=== PATIENT | female | born 1965 | race Caucasian/White ===

== ENCOUNTER → 2021-02-24 14:33 | Outpatient (BNVA) | payer MEDICARE, MEDICAID, SELFPAY | PROVIDERS: PCP Nurse Practitioner Family; Visit Provider Nurse Practitioner Family | DX: M79.18 Myalgia, other site (principal); M51.34 Other intervertebral disc degeneration, thoracic region | CPT/HCPCS: 20552; 99202 ==

== ENCOUNTER → 2021-08-09 12:54 | Outpatient (BNVA) | payer MEDICARE, MEDICAID, SELFPAY | PROVIDERS: PCP Nurse Practitioner Family; Visit Provider Nurse Practitioner Family | DX: M79.18 Myalgia, other site (principal); M51.34 Other intervertebral disc degeneration, thoracic region | CPT/HCPCS: 20552; 99212; J3300 ==

== ENCOUNTER → 2022-01-16 14:38 | Outpatient (BNVA) | payer MEDICARE, MEDICAID, SELFPAY | PROVIDERS: Visit Provider Nurse Practitioner Family | DX: M51.34 Other intervertebral disc degeneration, thoracic region (principal); M62.838 Other muscle spasm; M48.10 Ankylosing hyperostosis [Forestier], site unspecified; M47.819 Spondylosis without myelopathy or radiculopathy, site unspecified | CPT/HCPCS: 99212 ==

== ENCOUNTER 2025-05-05 13:50 | Outpatient (AMB) | payer OTHER, SELFPAY ==
--- NOTE | 2025-05-05 13:53 | MHC.OFFVIS ---
Intake Visit Reasons: 6m Allergies latex Allergy (Severe, Verified 01/16/22 14:48) bleeding seafood Allergy (Severe, Verified 01/16/22 14:48) Anaphylaxis amoxicillin Adverse Reaction (Severe, Verified 01/16/22 14:48) yeast infection HPI Comments Details: 59 y/o with h/o breast cancer diagnosed in Jun, treated with chemo and radiation. She was on exmetasone and reported that it was causing pain. She was treated for painful peripheral neuropthy. She is presenting with peripheral neuropathy and chronic back pain. Her neuropathy, primarily affecting her feet, results in severe and constant pain. The condition worsens significantly with her prescribed cancer medication, Exemestane, although discontinuation provides symptom relief. Despite this, she must remain on this medication for her stage IV breast cancer for another four years. The patient's chronic back pain persists alongside neuropathy, and various attempted treatments, including analgesic medications, have not provided effective relief. Review of Systems Narrative - Neurological: Reports peripheral neuropathy affecting her feet; chronic back pain. - Musculoskeletal: Reports chronic back pain. - Medication: Reports severe neuropathy linked to Exemestane. Physical Exam Neuro Other: Mental Status: Alert and oriented to person, place, and time. Normal attention. Normal spontaneous speech, fluency, and comprehension. Cranial Nerves: CN II: Visual boswell full to confrontation, visual acuity intact. CN III, IV, : Pupils equal, round, reactive to light and accommodation. Extraocular movements are normal. CN V: Facial sensation is normal. CN VII: Facial movements symmetrical. CN VIII: Hearing intact to bedside conversation is normal. CN IX, X: Palate elevates symmetrically. CN XI: Shoulder shrug and head turn symmetrical. CN XII: Tongue midline without atrophy or fasciculations. Extrapyramidal: Full facial expressions and blinking. No rigidity. Movements are appropriate with no tremor or abnormality. Speech: Normal; no dysarthria or tremor. 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 Code(s): M79.2 - Neuralgia and neuritis, unspecified Category: Medical Plan Impression recommendations: 59 years old woman with breast cancer status post chemotherapy and radiation now maintained on Exemestane, which according to her was causing the pain. She stopped it for awhile and pain was much better. Unfortunately, she was required to take this for few more years. She was asked to do an experiment and stopped taking pregabalin for a week and maybe also carbamazepine. If no change in pain is noted, I would discontinue these medicines. Coding Level of Care Code Est Pt Level 3 (17586) Diagnoses Peripheral polyneuropathy G62.9 Peripheral neuropathy type: polyneuropathy, unspecified Neuropathic pain M79.2
--- OUTSIDE RECORDS SUMMARY | 2025-05-05 17:03 | XMS_ITS | Continuity of Care Document ---
Author Name [facility], Medical Address [address] [place] [address] Organization Unknown Address [address] [place] [address] Medications No known medications Problems No known problems
--- OUTSIDE RECORDS SUMMARY | 2025-05-05 17:03 | XMS_ITS | Clinical Summary ---
Author Organization [facility] Address [address] [place] [address] Phone Care Team Providers Care Hay Baler Name Role Phone Edis Jorgensen MD Primary Care Provider Allergies Active Allergy Reactions Criticality Noted Date Comments Amoxicillin Other Medium 08/13/2017 Yeast infection Fish Oil Anaphylaxis High 10/07/2018 Latex Other Medium 08/13/2017 Hands bleeding Shellfish Containing Products Anaphylaxis High 09/09 Shellfish Derived 08/13/2017 Medications carBAMazepine (TEGretol) 200 mg tablet Take 1 tablet (200 mg total) by mouth at bedtime. 12/18/19 21 Active lisinopriL (PRINIVIL,ZESTRIL ) 20 mg tablet Take 1 tablet (20 mg total) by mouth 1 (one) time each day. Active polyethylene glycol (MIRALAX) 17 gram packet Take 17 g by mouth daily. Active acetaminophen (TYLENOL) 500 mg tablet Take 2 tablets (1,000 mg total) by mouth 3 (three) times a day. Active albuterol HFA (Ventolin HFA) 90 mcg/actuation inhaler INHALE 2 PUFFS INTO THE LUNGS EVERY 6 HOURS NEEDED FOR COUGH OR WHEEZING 09/19/19 24 Active pregabalin (LYRICA) 150 mg capsule Take 1 capsule (150 mg total) by mouth 3 (three) times a day. Active cetirizine (ZyrTEC) 10 mg tablet TAKE 1 TABLET BY MOUTH DAILY 90 tablet 1 07/09/19 25 Active lancets (OneTouch Delica Plus Lancet) 33 gauge by Other route 1 (one) time each day. USE TO TEST BLOOD GLUCOSE EVERY DAY 100 each 3 07/09/19 25 Active exemestane (AROMASIN) 25 mg tablet TAKE 1 TABLET(25 MG) BY MOUTH DAILY 90 tablet 3 07/27/19 25 Active metoprolol tartrate (LOPRESSOR) 50 mg tablet TAKE 1 TABLET BY MOUTH TWICE DAILY 180 tablet 1 11/13/19 25 Active fluticasone propionate (FLONASE) 50 mcg/actuation nasal spray SHAKE LIQUID AND USE 2 SPRAYS IN EACH NOSTRIL EVERY DAY 48 g 1 12/02/19 25 Active albuterol 2.5 mg /3 mL (0.083 %) nebulizer solutionIndicatio ns:Simple chronic bronchitis (CMS/HCC V24, CMS/HCC V28) Take 3 mL (2.5 mg total) by nebulization every 4 (four) hours if needed for wheezing. USE 1 VIAL VIA NEBULIZER EVERY 4 HOURS NEEDED FOR WHEEZING OR SHORTNESS OF BREATH OR COUGH 75 mL 3 12/08/19 25 Active EPIC Research & DiagnosticsTouch Ultra Test test strip Blood sugar checks 1-2 times a day 200 each 2 12/08/19 25 Active atorvastatin (LIPITOR) 20 mg tablet TAKE 1 TABLET BY MOUTH DAILY 90 tablet 1 01/14/20 25 Active senna 8.6 mg tablet TAKE 1 TABLET BY MOUTH EVERY DAY NEEDED FOR CONSTIPATION 90 tablet 1 01/22/20 25 Active DULoxetine (CYMBALTA) [address] capsule Take 1 capsule (60 mg total) by mouth 1 (one) time each day. 90 capsule 1 01/26/20 25 Active sertraline (ZOLOFT) 50 mg tablet Take 1 tablet (50 mg total) by mouth 1 (one) time each day. 90 tablet 1 02/17/20 25 Active [employer] CRM Ultra2 Meter monitoring kit by extracorporeal route 2 (two) times a day. Dx E11.9 1 each 03/04/20 25 Active famotidine (Pepcid) 20 mg tabletIndications :KUSUM (obstructive sleep apnea),Moderate persistent asthma without complication,Pulm onary emphysema, unspecified emphysema type,Morbid obesity (CMS/HCC V24, CMS/HCC V28) Take 1 tablet (20 mg total) by mouth at bedtime. 90 each 3 03/04/20 25 026 Active fenofibrate (LOFIBRA) 54 mg tablet Take 1 tablet (54 mg total) by mouth 1 (one) time each day. 90 tablet 1 03/04/20 25 Active glipiZIDE (Glucotrol XL) 2.5 mg 24 hr tablet Take 1 tablet (2.5 mg total) by mouth 1 (one) time each day. Do not crush, chew, or split. 90 each 1 03/04/20 25 Active omeprazole (PriLOSEC) [address] capsule Take 1 capsule (40 mg total) by mouth 1 (one) time each day. 90 capsule 1 03/04/20 25 Active LORazepam (ATIVAN) 0.5 mg tablet Take 1-2 tablets 1 hour before MRI scan 2 tablet 03/04/20 25 Active fluticasone propion-salmetero L (AIRDUO RESPICLICK) 232-14 mcg/actuation aerosol [facility] breath activated inhaler INHALE 1 PUFF INTO THE LUNGS TWICE DAILY 3 each 03/16/20 25 Active morphine (MS CONTIN) 30 mg 12 hr tabletIndications :Malignant neoplasm of overlapping sites of right breast in female, estrogen receptor positive (CMS/HCC V24, CMS/HCC V28),Anterior chest wall pain,Drug-induced polyneuropathy (CMS/HCC V24) Take 1 tablet (30 mg total) by mouth every 8 (eight) hours. Do not crush, chew, or split. Max Daily Amount: 90 mg 90 tablet 04/19/20 25 Active oxyCODONE (ROXICODONE) 10 mg immediate release tabletIndications :Anterior chest wall pain Take 1 tablet (10 mg total) by mouth every 6 (six) hours. Max Daily Amount: 40 mg 120 tablet 04/19/20 25 Active morphine (MS CONTIN) 30 mg 12 hr tabletIndications :Malignant neoplasm of overlapping sites of right breast in female, estrogen receptor positive (CMS/HCC V24, CMS/HCC V28),Anterior chest wall pain,Drug-induced polyneuropathy (CMS/HCC V24) Take 1 tablet (30 mg total) by mouth every 8 (eight) hours. Do not crush, chew, or split. Max Daily Amount: 90 mg 90 tablet 03/10/20 025 Disconti nued(Reo rder) oxyCODONE (ROXICODONE) 10 mg immediate release tabletIndications :Anterior chest wall pain Take 1 tablet (10 mg total) by mouth every 6 (six) hours. Max Daily Amount: 40 mg 120 tablet 03/31/20 025 Disconti nued(Reo rder) Active Problems Problem Noted Date Diagnosed Date Left adrenal mass ([facility] V24) 02/19/2025 Diarrhea of presumed infectious origin 5 Fibromyalgia 10/28/2024 Stage 3a chronic kidney disease ([facility] V24, [facility] V28) 10/27/2024 Malignant neoplasm of overla pping sites of right breast in female, estrogen receptor positive ([facility] V24, [facility] V28) 02/13/2024 Moderate persistent asthma without complication 04/23/2023 Chronic obstructive pulmonar y disease ([facility] V24, [facility] V28) 04/23/2023 Stress incontinence, female 01/14/2023 Abscess of chest wall 10/06/2021 COVID-19 07/13/2021 Overview (04/08/2024): 07/05/21 Type 2 diabetes mellitus wit hout complication, without long-term current use of insulin ([facility] V24, [facility] V28) 01/09/2021 Type 2 diabetes mellitus wit h diabetic polyneuropathy, without long-term current use of insulin ([facility] V24, [facility] V28) 10/11/2020 Pre-diabetes 02/18/2020 Overview (04/08/2024): HbA1c 6.1 % Anterior chest wall pain 01/01/2020 Asthma 11/09/2019 Seroma of breast 10/23/2019 Radiation induced neuropathy ([facility] V24) 08/20 Overview (02/13/2024): Follows with neurology Radiation dermatitis 07/24/2019 Radiation necrosis of skin and subcutaneous 05/24 Overview (04/08/2024): Being treated by Dr Marie (radiatologist) with silver cream, kenalog cream; last axillary radiation treatment may 2019 Venous insufficiency of both lower extremities 1 Leg cramps 02/09/2019 Drug-induced polyneuropathy ([facility] V24) 2018 Ganglion cyst 12/30/2018 Cellulitis of chest wall 12/09/2018 Arterial hypotension 11/25/2018 Chemotherapy-induced nausea 10/20/2018 Intractable vomiting with nausea 10/20/2018 Musculoskeletal pain 10/20/2018 Hypokalemia 10/07/2018 Port-A-Cath in place 10/07/2018 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 Four +ve lymph nodes for metastatic disease. Receiving adjuvent chemotherapy with Dr Daniel. KUSUM (obstructive sleep apnea) 01/27/2018 Overview (04/08/2024): [facility] Home Polysomnogram: Date 01/20/2018; AHI 7, Unclassified apneas 2; Obstructive apneas 2; Central apneas 1; Mixed apneas 0; hypopneas 50; average oxygen saturation 93% (lowest 87% without saturations <88% for 5% or more of study) [facility] Polysomnogram treatment study. Date 03/12/2018. SE 58 % SM 69 %; spent 24 % of the study in REM. On CPAP @ 9; RDI 0 (AHI 0), Central apneas 0; Obstructive apneas 0; Mixed apneas 0; hypopneas 0; RERAs 0; and, average oxygen saturation was 95%. For the entire study, PLMs ~0. - Obstructive Sleep Apnea - mild; mostly hypopneas; without sleep related hypoventilation by 2018 home polysomnogram. DISH (diffuse idiopathic skeletal hyperostosis) 12/09/2017 Mixed hyperlipidemia 09/19/2017 Anxiety and depression 09/10/2017 Primary hypertension 09/10/2017 Gastroesophageal reflux disease 09/10/2017 Morbid obesity ([facility] V24, [facility] V28) 2017 Hiatal hernia 08/13/2017 Insomnia 08/13/2017 Squamous cell skin cancer 08/13/2017 Encounters Date Type Department Care Team Description 04/19/2025 Results Follow-Up General Surgery [facility] [address] [facility] [address] [place] [id number] Edis Jorgensen MD 04/14/2025 11:46 AM EDT - 04/14/2025 11:59 PM EDT Hospital Encounter [facility] MRI [address] [place] [id number] Adenoma of left adrenal gland Discharge Disposition: Home or Self Care 03/10/2025 2:15 PM EDT Office Visit [facility] Hematology Oncology [address] [place] [phone] Fred Morgan MD Malignant neoplasm of overlapping sites of right breast in female, estrogen receptor positive ([facility] V24, [facility] V28) (Primary Dx); Anterior chest wall pain; Drug-induced polyneuropathy ([facility] V24); Other insomnia; Simple chronic bronchitis ([facility] V24, [facility] V28); Anxiety and depression 03/04/2025 1:30 PM EDT Office Visit Adult Medicine [address] [phone] Edis Jorgensen MD Hospital discharge follow-up (Primary Dx); Gastroenteritis; Acute cystitis without hematuria; Adenoma of left adrenal gland; Type 2 diabetes mellitus with diabetic polyneuropathy, without long-term current use of insulin ([facility] V24, [facility] V28); Primary hypertension; Anxiety and depression; KUSUM (obstructive sleep apnea); Moderate persistent asthma without complication; Pulmonary emphysema, unspecified emphysema type ([facility] V24, [facility] V28); Morbid obesity ([facility] V24, [facility] V28) 02/18/2025 4:45 PM EDT - 02/19/2025 5:21 PM EDT Hospital Encounter [facility] Urology Unit [address] [place] [phone] Damri, Efe MelvinMD Dunia gastelum Jasmine, DO Lawrenz, Cedric W, MD Jones, Christopher, MD Santoyo-Pacheco, Omar D, MD Generalized abdominal pain (Primary Dx); Nausea and vomiting, unspecified vomiting type; Cystitis; Sepsis without acute organ dysfunction, due to unspecified organism ([facility] V24, [facility] V28) Discharge Disposition: Home or Self Care 02/18/2025 Telephone [facility] [address] [place] [address] Edis Jorgensen MD 02/16/2025 Telephone [facility] Hematology Oncology [address] [place] [address] Renetta Abernathy MA from Last 3 Months Immunizations Immunization Administration Dates Next Due Influenza Quadravalent, MDCK , 0.5ml, with preservative (Flucelvax) 6mo and older 04/02/2023,02/27/2020,03/16/2018 Influenza, Unspecified 04/20/2021,02/27/2020 [email or web address] SARS-CoV-2 COVID -19, vector-nr, rS-Ad26, preservative free 10/02/2020 [employer] SARS-CoV-2 COVID-19, mRNA, LNP-S, preservative free 04/02/2023,10/05/2021,04/21/2021 Pneumococcal conjugate 20 va lent (Prevnar 20, PCV 20) 2mo and older 04/02/2023 Pneumococcal polysaccharide 23 valent (Pneumovax 23) 2yo and older 03/16/2020 Tdap Tetanus diptheria acell ular pertussis (Boostrix; Adacel) 7yo and older 10/05/2016 Zoster recombinant (Shingrix ) 19yo and older 06/06/2018,04/07/2018 Surgical History Surgery Date Site/Laterality Comments WISDOM TOOTH EXTRACTION CHOLECYSTECTOMY CARPAL TUNNEL RELEASE Bilateral ROTATOR CUFF REPAIR ligament reattached HYSTERECTOMY MASTECTOMY Bilateral with sential lymph node, chemo and radiation CYST REMOVAL ?bartholin CR FINGER 2ND DIGIT RT (INDEX) right index finger bone spur removed SKIN CANCER EXCISION chest ABSCESS DRAINAGE top of left foot Medical History Medical History Date Comments Breast cancer ([facility] V24, [facility] V28) DX:Breast cancer (HCC) Squamous cell carcinoma of skin DX:Squamous cell carcinoma of skin Insomnia DX:Insomnia Hiatal hernia DX:Hiatal hernia GERD (gastroesophageal reflux disease) DX:GERD (gastroesophageal reflux disease) Hypertension DX:Hypertension Family History Medical History Relation Name Comments Arthritis Brother Cancer Maternal Grandmother colon Arthritis Mother Cancer Mother breast Diabetes Paternal Grandfather Arthritis Paternal Grandmother Relation Name Status Comments Brother Maternal Grandmother Mother Paternal Grandfather Paternal Grandmother Social History Tobacco Use Types Packs/Day Years Used Date Smoking Tobacco: Former Cigarettes Smokeless Tobacco: Never Tobacco Cessation:Counseling Given: Not Answered Alcohol Use Standard Drinks/Week Comments No 0 (1 standard drink = 0.6 oz pur e alcohol) Housing Instability Answer Date Recorde d Are you worried that in the next 2 months you may not have stable housing? No 10/22/2024 Food Access & Nutrition Answer Date Rec orded Do you have access to a vari ety of food including fruits and vegetables? Yes 10/22/2024 Access to Healthcare Answer Date Record ed Within the last 3 months, valeria khan many times did you visit the emergency department for your medical care? 0 10/22/2024 Health Literacy Answer Date Recorded How often do you need to hav e someone help you when you read instructions, pamphlets, or other written material from your doctor or pharmacy? Never 10/22/2024 Caregiver: How often do you need to have someone help you when you read instructions, pamphlets, or other written material from your doctor or pharmacy? Not on file 10/22/2024 Financial Risk Answer Date Recorded How hard is it for you to pa y for the very basics like food, housing, medical care, and air conditioning / heating? Unable to respond 10/22/2024 Transportation Answer Date Recorded Has the lack of transportati on kept you from meetings, work, or from getting things needed for daily living? No Has the lack of transportati on kept you from medical appointments or from getting medications? No 10/22/2024 Social Isolation Answer Date Recorded How often do you feel lonely or isolated from those around you? Sometimes 10/22/2024 Food Risk Answer Date Recorded Within the past 12 months we worried whether our food would run out before we got money to buy more. Never true 10/22/2024 Within the past 12 months th e food we bought just didn't last and we didn't have money to get more. Never true 10/22/2024 Dependent Care Answer Date Recorded Do you need help finding or paying for care for your loved ones. For example, early childhood education worker or elderly care for an older adult? No 10/22/2024 Education Answer Date Recorded Do you think completing more education or training, like finishing a GED, going to college, or learning a trade, would be helpful for you? No 10/22/2024 Employment and Income Answer Date Recor ded During the last four weeks, have you been actively looking for work? No 10/22/2024 Living Situation Answer Date Recorded What is your living situation? Unrecognized valu e 10/22/2024 Interpersonal Safety Answer Date Record ed Physical Abuse Unrecognized value 02/19/2025 Verbal Abuse Unrecognized value 02/19/2025 Comments Unknown Sex and Gender Information Value Date Recorded Sex Assigned at Female 04/22/2023 9:31 AM EDT Legal Sex Female 11:33 AM EST Gender Identity Female 04/22/2023 9:31 AM EDT Sexual Orientation Straight 04/22/2023 9: 31 AM EDT Obstetrics History Last Filed Vital Signs Vital Sign Reading Time Taken Comments Blood Pressure 147/52 03/10/2025 2:23 PM EDT Pulse 73 03/10/2025 2:23 PM EDT Temperature 35.6 C (96 F) 03/10/2025 2:23 PM EDT Respiratory Rate 17 02/19/2025 2:46 PM EDT Oxygen Saturation 98% 03/10/2025 2:23 PM EDT Inhaled Oxygen Concentration - - Weight 136 kg (300 lb) 03/10/2025 2:23 PM EDT Height 160 cm (5' 3 ) 03/10/2025 2:23 PM EDT Body Mass Index 53.14 03/10/2025 2:23 PM EDT Plan of Treatment Upcoming Encounters Date Type Department Care Team (Late st Contact Info) Description 06/02/2025 2:45 PM EST Office Visit [facility] Hematology Oncology [address] [place] [address] Jamey-Fred Daniel MD [address] [place] [address] 07/05/2025 2:00 PM EST Office Visit Adult Medicine [facility] [address], [place] [phone] Skye Chau PA [address], [place] Health Maintenance Due Date Last Done Comments Diabetes: Annual Retina Eye Exam 1977 Hepatitis A Vaccines (1 of 2 - Risk 2-dose series) 1986 Hepatitis B Vaccines (1 of 3 - 19+ 3-dose series) 1986 RSV Immunization Adult Patients (1 - Risk 50-74 years 1-dose series) 2017 HIV Screening 05/31/2022 Medicare Annual Wellness Visit 05/31/2022 Cervical Cancer Screening: Pap Smear 02/02/2023 02/03/2020 Diabetes: Annual Foot Exam 10/19/2024 10/20/2023 COVID-19 Vaccine ( season) 2025 03/03/2025, 04/10/2024, 04/02/2023, Additional history exists Diabetes: Blood Sugar Control Test (HGBA1C) 08/31/2025 03/03/2025, 12/16/2023, 12/16/2023 Social Influencers of Health Screening 10/22/2025 10/22/2024 Diabetes: Annual Urine Albumin-Creatinine Ratio (uACR) 03/03/2026 03/03/2025, 10/08/2024, 08/27/2023 Diabetes: Annual GFR (Glomerular Filtration Rate) 03/03/2026 03/03/2025, 02/19/2025, 02/18/2025, Additional history exists Hypertension/CHF/CAD Annual BMP Blood Test 03/03/2026 03/03/2025, 02/19/2025, 02/18/2025, Additional history exists DTaP,Tdap,and Td Vaccines (2 - Td or Tdap) 10/05/2026 10/05/2016 Colorectal Cancer Screening: Colonoscopy 02/11/2028 02/10/2018 Cholesterol Screening (Lipid Panel) 03/03/2030 03/03/2025, 08/27/2023 Zoster Vaccines Completed 06/06/2018, 04/07/2018 Breast Cancer Screening Discontinued 07/03/2018, 06/27 Hepatitis C Screening Completed 11/16/2021 Pneumococcal Vaccine: 50+ Years Completed 04/02/2023, 03/16/2020 Depression Screening Completed 10/22/2024 Influenza Vaccine Completed 03/03/2025, , 04/02/2023, Additional history exists HIB Vaccines Aged Out No longer eligi ble based on patient's age to complete this topic HPV Vaccines Aged Out No longer eligi ble based on patient's age to complete this topic IPV Vaccines Aged Out No longer eligi ble based on patient's age to complete this topic MMR Vaccines Aged Out No longer eligi ble based on patient's age to complete this topic Meningococcal ACWY Vaccine Aged Out N o longer eligible based on patient's age to complete this topic Meningococcal B Vaccine Aged Out No l onger eligible based on patient's age to complete this topic RSV Immunization Patients Under 20 months Aged Out No longer eligible based on patient's age to complete this topic Varicella Vaccines Aged Out No longer eligible based on patient's age to complete this topic Procedures Procedure Name Priority Date/Time Associated Diagnosis Comments MR ABDOMEN WO AND W CONTRAST Routine 04/14/2025 1:32 PM EDT Adenoma of left adrenal gland CBC WITH AUTO DIFFERENTIAL Routine 03/03/2025 2:16 PM EDT 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 ([facility] V24, [facility] V28) MICROALBUMIN CREATININE URINE RATIO Routine 03/03/2025 2:16 PM EDT Type 2 diabetes mellitus with diabetic polyneuropathy, without long-term current use of insulin ([facility] V24, [facility] V28) Mixed hyperlipidemia Primary hypertension Simple chronic bronchitis ([facility] V24, [facility] V28) KUSUM (obstructive sleep apnea) Stage 3a chronic kidney disease ([facility] V24, [facility] V28) Fibromyalgia Anxiety and depression Malignant neoplasm of overlapping sites of right breast in female, estrogen receptor positive ([facility] V24, [facility] V28) Urinary incontinence, unspecified type Transaminitis LIPID PANEL WITH REFLEX TO DIRECT LDL Routine 03/03/2025 2:16 PM EDT Type 2 diabetes mellitus with diabetic polyneuropathy, without long-term current use of insulin (CMS/HCC V24, CMS/HCC V28) Mixed hyperlipidemia Primary hypertension Simple chronic bronchitis (CMS/HCC V24, CMS/HCC V28) KUSUM (obstructive sleep apnea) Stage 3a chronic kidney disease (CMS/HCC V24, CMS/HCC V28) Fibromyalgia Anxiety and depression Malignant neoplasm of overlapping sites of right breast in female, estrogen receptor positive (CMS/HCC V24, CMS/HCC V28) Urinary incontinence, unspecified type Transaminitis HEMOGLOBIN A1C Routine 03/03/2025 2:16 PM EDT Type 2 diabetes mellitus with diabetic polyneuropathy, without long-term current use of insulin (CMS/HCC V24, CMS/HCC V28) Mixed hyperlipidemia Primary hypertension Simple chronic bronchitis (CMS/HCC V24, CMS/HCC V28) KUSUM (obstructive sleep apnea) Stage 3a chronic kidney disease (CMS/HCC V24, CMS/HCC V28) Fibromyalgia Anxiety and depression Malignant neoplasm of overlapping sites of right breast in female, estrogen receptor positive (CMS/HCC V24, CMS/HCC V28) Urinary incontinence, unspecified type Transaminitis CBC AND DIFFERENTIAL Routine 03/03/2025 2:16 PM EDT 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 (CMS/HCC V24, CMS/HCC V28) COMPREHENSIVE METABOLIC PANEL Routine 03/03/2025 2:16 PM EDT 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 (CMS/HCC V24, CMS/HCC V28) CANCER ANTIGEN 27-29 Routine 03/03/2025 2:16 PM EDT 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 (CMS/HCC V24, CMS/HCC V28) POCT GLUCOSE BLOOD Routine 02/19/2025 4: 44 PM EDT POCT GLUCOSE BLOOD Routine 02/19/2025 11 :25 AM EDT POCT GLUCOSE BLOOD Routine 02/19/2025 8: 53 AM EDT CBC WITH AUTO DIFFERENTIAL Routine 02/19/2025 5:58 AM EDT LACTATE Routine 02/19/2025 5:58 AM EDT CBC AND DIFFERENTIAL Routine 02/19/2025 5:58 AM EDT BASIC METABOLIC PANEL Routine 02/19/2025 5:58 AM EDT POCT GLUCOSE BLOOD Routine 02/18/2025 11 :38 PM EDT LACTATE, WITH REFLEX Timed 02/18/2025 8:31 PM EDT URINALYSIS WITH REFLEX MICROSCOPIC STAT 02/18/2025 8:07 PM EDT URINALYSIS WITH REFLEX MICROSCOPIC STAT 02/18/2025 8:[address] ABDOMEN PELVIS W CONTRAST STAT 02/18/2025 6:18 PM EDT LACTATE, WITH REFLEX STAT 02/18/2025 5:39 PM EDT CULTURE BLOOD STAT 02/18/2025 5:39 PM EDT MAGNESIUM Add-On 02/18/2025 5:23 PM EDT CBC WITH AUTO DIFFERENTIAL STAT 02/18/2025 5:23 PM EDT COMPREHENSIVE METABOLIC PANEL STAT 02/18/2025 5:23 PM EDT CBC AND DIFFERENTIAL STAT 02/18/2025 5:23 PM EDT RESPIRATORY VIRUS PANEL MOLECULAR STUDY STAT 02/18/2025 5:23 PM EDT CULTURE BLOOD STAT 02/18/2025 5:23 PM EDT DIABETES FOOT EXAM Routine 10/20/2023 HEPATITIS C SCREENING Routine 11/16/2021 PAP SMEAR Routine 02/03/2020 DX MAMMO INCL CAD UNI Routine 07/03/2018 10:16 AM EST Other abnormal and inconclusive findings on diagnostic imaging of breast COLONOSCOPY Routine 02/10/2018 from Last 3 Months or Most Recently Relevant to Health Maintenance Results * MR Abdomen wo and w Contrast (04/14/2025 1:32 PM EDT) Anatomical Region Laterality Modality Body Magnetic Resonan ce 04/19/2025 10:2 2 AM EDT Impressions 04/19/2025 11:49 AM EDT 1. A previously noted left adrenal nodule is difficult to characterize because of its small size. There is suggestion of signal dropout on out of phase imaging and this is suspected to represent an adenoma, but today's study is not definitive. 2. Partially visible severe degenerative spinal stenosis at L3-4. -------- FINAL REPORT -------- Dictated By: Jayden Paz Dictated Date: 04/19/2025 10:22 ET Assigned Physician: Jayden Paz Reviewed and Electronically Signed By: Jayden Paz Signed Date: 04/19/2025 11:49 ET Workstation ID: [id number] Transcribed By: Self Edit Transcribed Date: 04/19/2025 11:40 ET Narrative 04/19/2025 11:49 AM EDT PROCEDURE: MRI of the abdomen with intravenous contrast. HISTORY: Adrenal mass, < 4cm, initial eval. TECHNIQUE: Multiplanar multisequence MRI of the abdomen with and without intravenous contrast. IV contrast dose: 20 mL intravenous Dotarem from a 20 mL vial with 0 mL discarded. COMPARISON: CT dated 02/18/2025 and 10/10/2018. FINDINGS: LOWER THORAX: Normal. LIVER: Small cyst in the right lobe near the dome. No evidence of steatosis on out of phase imaging. The portal and hepatic veins are patent. BILIARY: Gallbladder not seen, suspected to be surgically absent. Normal caliber biliary tree. No ductal dilatation or filling defect. PANCREAS: No focal lesion. No ductal dilatation. SPLEEN: Normal. ADRENAL GLANDS: Stable small left adrenal nodule. The nodule is difficult to characterize because of its small size. There is suggestion of signal dropout on out of phase images. KIDNEYS: Normal. Visible portions of the collecting systems are normal. RETROPERITONEUM: No mass or lymphadenopathy. VASCULATURE: No aneurysm. BOWEL/MESENTERY: Visible portions are normal. ABDOMINAL WALL: Visible portions are normal. BONES: Multilevel degenerative changes of the lumbar spine, with significant degenerative spinal stenosis partially visible at L3-4 and incompletely evaluated. No visible bony lesion. Procedure Note Jayden Paz MD - 04/19/2025 PROCEDURE: MRI of the abdomen with intravenous contrast. HISTORY: Adrenal mass, < 4cm, initial eval. TECHNIQUE: Multiplanar multisequence MRI of the abdomen with and withoutintravenous contrast. IV contrast dose: 20 mL intravenous Dotarem from a 20 mL vial with 0 mLdiscarded. COMPARISON: CT dated 02/18/2025 and 10/10/2018. FINDINGS: LOWER THORAX: Normal. LIVER: Small cyst in the right lobe near the dome. No evidence ofsteatosis on out of phase imaging. The portal and hepatic veins arepatent. BILIARY: Gallbladder not seen, suspected to be surgically absent. Normalcaliber biliary tree. No ductal dilatation or filling defect. PANCREAS: No focal lesion. No ductal dilatation. SPLEEN: Normal. ADRENAL GLANDS: Stable small left adrenal nodule. The nodule is difficultto characterize because of its small size. There is suggestion of signaldropout on out of phase images. KIDNEYS: Normal. Visible portions of the collecting systems are normal. RETROPERITONEUM: No mass or lymphadenopathy. VASCULATURE: No aneurysm. BOWEL/MESENTERY: Visible portions are normal. ABDOMINAL WALL: Visible portions are normal. BONES: Multilevel degenerative changes of the lumbar spine, withsignificant degenerative spinal stenosis partially visible at L3-4 andincompletely evaluated. No visible bony lesion. IMPRESSION: 1. A previously noted left adrenal nodule is difficult to characterizebecause of its small size. There is suggestion of signal dropout on outof phase imaging and this is suspected to represent an adenoma, chip's study is not definitive. 2. Partially visible severe degenerative spinal stenosis at L3-4. -------- FINAL REPORT -------- Dictated By: Jayden Paz Dictated Date: 04/19/2025 10:22 ET Assigned Physician: Jayden Paz Reviewed and Electronically Signed By: Jayden Paz Signed Date: 04/19/2025 11:49 ET Workstation ID: [id number] Transcribed By: Self Edit Transcribed Date: 04/19/2025 11:40 ET Edis Jorgensen MD IM MRI PROCEDURES Final Re sult * (ABNORMAL) Lipid panel with reflex to direct LDL (03/03/2025 2:16 PM EDT) Cholesterol 216(H) 0 - 200 mg/dL LAB CHEMISTRY METHOD [facility]20[facility] 5[facility] Triglycerides 365(H) 0 - 150 mg/dL LAB CHEMISTRY METHOD 03/03/2025 5:54 PM [facility] HDL 44 >=40 mg/dL LAB CHEMISTRY METHOD 03/03/2025 5:54 PM [facility] LDL Calculated 99 0 - 100 mg/dL LAB CHEMISTRY METHOD 03/03/2025 5:54 PM T [facility] Comment:Estimated LDL Calcul ated using equation: Total cholesterol - HDL cholesterol - (Triglycerides/5) VLDL Cholesterol Ty 73 mg/dL LAB CHEMISTRY METHOD 03/03/2025 5:54 PM [facility] Non HDL Chol. (LDL+VLDL) 172(H) <145 mg/dL LAB CHEMISTRY METHOD 03/03/2025 5:54 PM [facility] Chol/HDL Ratio 4.9(H) 0.0 - 4.4 LAB CHEMISTRY METHOD 03/03/2025 5:54 PM [facility] Blood Venous blood specimen / Unknown Venipuncture / Unknown 03/03/2025 2:16 PM EDT 03/03/2025 4:39 PM EDT us Edis Jorgensen MD LAB BLOOD ORDERABLES Final Result [facility] [address] [place] [address], * (ABNORMAL) CBC auto differential (03/03/2025 2:16 PM EDT) Only the most recent of3 resultswithin the time period is included. WBC 9.2 4.8 - 10.8 K/mcL LAB HEMETOLOGY METHOD 03/03/2025 4:58 PM EDT [facility] RBC 5.00(H) 3.80 - 4.80 M/mcL LAB HEMETOLOGY METHOD 03/03/2025 4:58 PM EDT [facility] Hemoglobin 14.1 11.5 - 16.0 g/dL LAB HEMETOLOGY METHOD 03/03/2025 4:58 PM EDT [facility] Hematocrit 43.5 35.0 - 47.0 % LAB HEMETOLOGY METHOD 03/03/2025 4:58 PM EDT [facility] MCV 87.2 79.0 - 98.0 FL LAB HEMETOLOGY METHOD 03/03/2025 4:58 PM EDT [facility] MCH 28.3 27.0 - 32.0 pcg LAB HEMETOLOGY METHOD 03/03/2025 4:58 PM EDT [facility] MCHC 32.4 32.0 - 37.0 g/dL LAB HEMETOLOGY METHOD 03/03/2025 4:58 PM EDT [facility] RDW 13.2 11.0 - 15.0 % LAB HEMETOLOGY METHOD 03/03/2025 4:58 PM EDT [facility] Platelets 299 130 - 400 K/mcL LAB HEMETOLOGY METHOD 03/03/2025 4:58 PM EDT [facility] MPV 9.4 7.0 - 11.0 FL LAB HEMETOLOGY METHOD 03/03/2025 4:58 PM EDT [facility] NRBC 0.0 <1.0 % LAB HEMETOLOGY METHOD 03/03/2025 4:58 PM EDT [facility] NRBC Absolute 0.00 <0.10 K/mcL LAB HEMETOLOGY METHOD 03/03/2025 4:58 PM EDT [facility] Neutrophils Relative 73.9 % LAB HEMETOLOGY METHOD 03/03/2025 4:58 PM [facility] Lymphocytes Relative 16.7 % LAB HEMETOLOGY METHOD 03/03/2025 4:58 PM EDT [facility] Monocytes Relative 7.2 % LAB HEMETOLOGY METHOD 03/03/2025 4:58 PM EDT [facility] Eosinophils Relative 0.9 % LAB HEMETOLOGY METHOD 03/03/2025 4:58 PM [facility] Basophils Relative 0.9 % LAB HEMETOLOGY METHOD 03/03/2025 4:58 PM [facility] Immature Granulocytes Relative 0.4 % LAB HEMETOLOGY METHOD 03/03/2025 4:58 PM EDT [facility] Neutrophils Absolute 6.78 1.50 - 7.00 K/mcL LAB HEMETOLOGY METHOD 03/03/2025 4:58 PM EDT [facility] Lymphocytes Absolute 1.53 1.00 - 5.00 K/mcL LAB HEMETOLOGY METHOD 03/03/2025 4:58 PM EDT [facility] Monocytes Absolute 0.66 0.20 - 1.00 K/mcL LAB HEMETOLOGY METHOD 03/03/2025 4:58 PM EDT [facility] Eosinophils Absolute 0.08 0.00 - 0.50 K/[facility] LAB HEMETOLOGY METHOD 03/03/2025 4:58 PM EDT [facility] Basophils Absolute 0.08 0.00 - 0.20 K/mcL LAB HEMETOLOGY METHOD 03/03/2025 4:58 PM EDT [facility] Immature Granulocytes Absolute 0.04(H) 0.00 - 0.03 K/mcL LAB HEMETOLOGY METHOD 03/03/2025 4:58 PM EDT [facility] Blood Venous blood specimen / Unknown Venipuncture / Unknown 03/03/2025 2:16 PM EDT 03/03/2025 4:40 PM EDT us Fred Morgan MD LAB BLOOD ORDERABLE S Final Result Performing Organization Address City/[facility]/ZIP Co de Phone Number [facility] [address] [place] [address], * Cancer antigen 27-29 (03/03/2025 2:16 PM EDT) CA 27.29 27.9 <38.6 U/mL 03/08/2025 11:44 AM EDT [facility] Comment: The Siemens Advia Centaur [id number] Chemiluminescent Immunoassay is used. Results obtained with different assay methods or kits cannot be used interchangeably. Results cannot be interpreted as absolute evidence of the presence or absence of malignant disease. Test performed at [facility], [facility] [address] , [place] [address] Marcie Summers MD, PhD - Bottom Bleacher Blood Venous blood specimen / Unknown Venipuncture / Unknown 03/03/2025 2:16 PM EDT 03/03/2025 4:39 PM EDT us Fred Morgan MD LAB BLOOD ORDERABLE S Final Result [facility] [address] [place] [address] * (ABNORMAL) Microalbumin creatinine urine ratio (03/03/2025 2:16 PM EDT) Creatinine, Urine 145.0 mg/dL LAB CHEMISTRY METHOD 03/03/2025 6:11 PM EDT [facility] Microalb, Ur 29.1(H) 0.0 - 29.0 mg/L LAB CHEMISTRY METHOD 03/03/2025 6:11 PM EDT [facility] Microalb/Crea t Ratio 20 <30 mg/g creat LAB CHEMISTRY METHOD 03/03/2025 6:11 PM EDT [facility] Urine Urine specimen obtained by clean catch procedure / Unknown Non-blood Collection / Unknown 03/03/2025 2:16 PM EDT 03/03/2025 4:39 PM EDT us Edis Jorgensen MD LAB URINE ORDERABLES Final Result Performing Organization Address [facility] Co de Phone Number [facility] [address] [place] [address], * Hemoglobin A1c (03/03/2025 2:16 PM EDT) Hemoglobin A1C 5.8 <6.5 % LAB CHEMISTRY METHOD 03/03/2025 9:41 PM EDT [facility] Mean Bld Glu Estim. 120 mg/dL LAB CHEMISTRY METHOD 03/03/2025 9:41 PM EDT [facility] Blood Venous blood specimen / Unknown Venipuncture / Unknown 03/03/2025 2:16 PM EDT 03/03/2025 4:40 PM EDT Edis Jorgensen MD LAB BLOOD ORDERABLES Final Result Performing Organization Address City/[facility]/ZIP Co de Phone Number [facility] [address] [place] [address], * (ABNORMAL) Comprehensive metabolic panel (03/03/2025 2:16 PM EDT) Only the most recent of2 resultswithin the time period is included. Sodium 134 133 - 145 mmol/L LAB CHEMISTRY METHOD 03/03/2025 5:54 PM EDT [facility] Potassium 4.5 3.5 - 5.5 mmol/L LAB CHEMISTRY METHOD 03/03/2025 5:54 PM [facility] Chloride 102 96 - 110 mmol/L LAB CHEMISTRY METHOD 03/03/2025 5:54 PM [facility] CO2 24 21 - 32 mmol/L LAB CHEMISTRY METHOD 03/03/2025 5:54 PM [facility] Anion Gap 8 3 - 11 LAB CHEMISTRY METHOD 03/03/2025 5:54 PM [facility] Glucose 118(H) 70 - 100 mg/dL LAB CHEMISTRY METHOD 03/03/2025 5:54 PM [facility] BUN 18 5 - 25 mg/dL LAB CHEMISTRY METHOD 03/03/2025 5:54 PM [facility] Creatinine 1.13(H) 0.50 - 1.10 mg/dL LAB CHEMISTRY METHOD 03/03/2025 5:54 PM [facility] eGFR 57(L) >=60 mL/min/1. 73m2 LAB CHEMISTRY METHOD 03/03/2025 5:54 PM [facility] Comment:Calculation based on the Chronic Kidney Disease Epidemiology Collaboration (CKD-EPI) equation refit without adjustment for race. BUN/Creatinine Ratio 15.9 LAB CHEMISTRY METHOD 03/03/2025 5:54 PM [facility] Calcium 9.6 8.5 - 10.5 mg/dL LAB CHEMISTRY METHOD 03/03/2025 5:54 PM [facility] AST (SGOT) 41 10 - 42 unit/L LAB CHEMISTRY METHOD 03/03/2025 5:54 PM EDT [facility] ALT (SGPT) 41 10 - 60 unit/L LAB CHEMISTRY METHOD 03/03/2025 5:54 PM EDT [facility] Alkaline Phosphatase 105 42 - 121 unit/L LAB CHEMISTRY METHOD 03/03/2025 5:54 PM EDT [facility] Total Protein 7.7 6.0 - 8.0 g/dL LAB CHEMISTRY METHOD 03/03/2025 5:54 PM EDT [facility] Albumin 4.0 3.2 - 5.0 g/dL LAB CHEMISTRY METHOD 03/03/2025 5:54 PM EDT [facility] Total Bilirubin 0.3 0.0 - 1.4 mg/dL LAB CHEMISTRY METHOD 03/03/2025 5:54 PM EDT [facility] Blood Venous blood specimen / Unknown Venipuncture / Unknown 03/03/2025 2:16 PM EDT 03/03/2025 4:39 PM EDT Fred Morgan MD LAB BLOOD ORDERABLE S Final Result [facility] [address] [place] [address], * POCT Glucose, blood (02/19/2025 4:44 PM EDT) Only the most recent of4 resultswithin the time period is included. Glucose POCT 100 70 - 100 mg/dL 02/19/2025 4:45 PM EDT [facility] Blood Capillary blood specimen / Unknown 02/19/2025 4:44 PM EDT 02/19/2025 4:46 PM EDT Benson Bentley MD LAB POINT OF C ARE TEST DOCKED DEVICE UNSOLICITED RESULTS Final Result Performing Organization Address [facility]/ZIP Co de Phone Number [facility] [address] [place] [address], [place] [phone] * Lactate (02/19/2025 5:58 AM EDT) Lactate 0.9 0.4 - 2.0 mmol/L LAB CHEMISTRY METHOD 02/19/2025 7:13 AM EDT [facility] Blood Venous blood specimen / Unknown Venipuncture / Unknown 02/19/2025 5:58 AM EDT 02/19/2025 6:32 AM EDT Raymundo Beach MD LAB BLOOD ORDERABLES Final Result Performing Organization Address [facility]/ZIP Co de Phone Number [facility] [address] [place] [address], [place] [phone] * Basic metabolic panel (02/19/2025 5:58 AM EDT) Pathologist [facility] Sodium 138 133 - 145 mmol/L LAB CHEMISTRY METHOD 02/19/2025 7:07 AM [facility] Potassium 3.7 3.5 - 5.5 mmol/L LAB CHEMISTRY METHOD 02/19/2025 7:07 AM [facility] Chloride 104 96 - 110 mmol/L LAB CHEMISTRY METHOD 02/19/2025 7:07 AM [facility] CO2 25 21 - 32 mmol/L LAB CHEMISTRY METHOD 02/19/2025 7:07 AM [facility] Anion Gap 9 3 - 11 LAB CHEMISTRY METHOD 02/19/2025 7:07 AM [facility] Glucose 96 70 - 100 mg/dL LAB CHEMISTRY METHOD 02/19/2025 7:07 AM [facility] BUN 16 5 - 25 mg/dL LAB CHEMISTRY METHOD 02/19/2025 7:07 AM EDT [facility] Creatinine 1.02 0.50 - 1.10 mg/dL LAB CHEMISTRY METHOD 02/19/2025 7:07 AM EDT [facility] eGFR 64 >=60 mL/min/1. 73m2 LAB CHEMISTRY METHOD 02/19/2025 7:07 AM EDT [facility] Comment:Calculation based on the Chronic Kidney Disease Epidemiology Collaboration (CKD-EPI) equation refit without adjustment for race. BUN/Creatinine Ratio 15.7 LAB CHEMISTRY METHOD 02/19/2025 7:07 AM EDT [facility] Calcium 8.7 8.5 - 10.5 mg/dL LAB CHEMISTRY METHOD 02/19/2025 7:07 AM EDT [facility] Blood Venous blood specimen / Unknown Venipuncture / Unknown 02/19/2025 5:58 AM EDT 02/19/2025 6:32 AM EDT Raymundo Beach MD LAB BLOOD ORDERABLES Final Result [facility] [address] [place] [address], [place] [phone] * (ABNORMAL) Lactate, with reflex (02/18/2025 8:31 PM EDT) Only the most recent of2 resultswithin the time period is included. LACTIC ACID 3.1(HH) 0.4 - 2.0 mmol/L LAB CHEMISTRY METHOD 02/18/2025 10:00 PM EDT [facility] Blood Venous blood specimen / Unknown Venipuncture / Unknown 02/18/2025 8:31 PM EDT 02/18/2025 8:36 PM EDT Efe Holley MD LAB BLOOD ORDERABLES Fin al Result Performing Organization Address City/[facility]/ZIP Co de Phone Number [facility] [address] [place] [address], [place] [phone] * (ABNORMAL) Urinalysis with reflex microscopic (02/18/2025 8:07 PM EDT) Specific [place] Urine >1.045(H) 1.003 - 1.030 LAB URINALYSIS - AUTOMATED METHOD 02/18/2025 8:30 PM [facility] pH, Urine 5.5 5.0 - 8.0 pH LAB URINALYSIS - AUTOMATED METHOD 02/18/2025 8:30 PM [facility] Leukocytes, Urine Small(A) Negative LAB URINALYSIS - AUTOMATED METHOD 02/18/2025 8:30 PM [facility] Nitrite, Urine Negative Negative LAB URINALYSIS - AUTOMATED METHOD 02/18/2025 8:30 PM [facility] Protein, Urine Negative <=Trace mg/dL LAB URINALYSIS - AUTOMATED METHOD 02/18/2025 8:30 PM [facility] Glucose, Urine Negative Negative mg/dL LAB URINALYSIS - AUTOMATED METHOD 02/18/2025 8:30 PM [facility] Ketones, Urine Trace(A) Negative mg/dL LAB URINALYSIS - AUTOMATED METHOD 02/18/2025 8:30 PM [facility] Urobilinogen , Urine 1.0 0.2 - 1.0 mg/dL LAB URINALYSIS - AUTOMATED METHOD 02/18/2025 8:30 PM [facility] Bilirubin, Urine Negative Negative LAB URINALYSIS - AUTOMATED METHOD 02/18/2025 8:30 PM [facility] Blood, Urine Negative Negative LAB URINALYSIS - AUTOMATED METHOD 02/18/2025 8:30 PM [facility] RBC, Urine 1.8 0 - 4 /HPF LAB URINALYSIS - AUTOMATED METHOD 02/18/2025 8:30 PM [facility] WBC, Urine 28.5(H) 0 - 4 /HPF LAB URINALYSIS - AUTOMATED METHOD 02/18/2025 8:30 PM EDT [facility] Squamous Epithelial, Urine 11 0 - 60 /LPF LAB URINALYSIS - AUTOMATED METHOD 02/18/2025 8:30 PM EDT [facility] Bacteria, Urine Few(A) Negative /HPF LAB URINALYSIS - AUTOMATED METHOD 02/18/2025 8:30 PM EDT [facility] Hyaline Casts, Urine 0.0 0 - 3 /LPF LAB URINALYSIS - AUTOMATED METHOD 02/18/2025 8:30 PM EDT [facility] Urine Urine specimen obtained by clean catch procedure / Unknown Non-blood Collection / Unknown 02/18/2025 8:07 PM EDT 02/18/2025 8:14 PM EDT us Efe Holley MD LAB URINE ORDERABLES Fin al Result [facility] [address] [place] [address], [place] [phone] * CT Abdomen Pelvis w Contrast (02/18/2025 6:18 PM EDT) Anatomical Region Laterality Modality Body Computed Tomogra phy 02/18/2025 6:46 PM EDT Impressions 02/18/2025 6:46 PM EDT 1. No acute findings. 2. Hepatomegaly and mild hepatic steatosis. 3. 1.7 cm nonspecific left adrenal lesion. Follow-up nonemergent adrenal CT or MRI could be obtained to further characterize. This document has been electronically signed by: Ira Watson MD on 02/18/2025 18:46:50 Narrative 02/18/2025 6:46 PM EDT INDICATION: Bowel obstruction suspected CT abdomen and pelvis with contrast Comparison: None provided Findings: No consolidation or pleural effusion. Minimal lingular subsegmental atelectasis/scarring. The gallbladder is surgically absent. No biliary ductal dilatation. The liver is enlarged and demonstrates mild low parenchymal attenuation suggestive of mild steatosis. The spleen, pancreas and right adrenal are unremarkable. Nonspecific 1.7 cm left adrenal mass. Enhancement of bilateral kidneys with no stones along the course of the ureters and no hydronephrosis or hydroureter. No perinephric stranding or perinephric fluid. No bowel obstruction, pneumoperitoneum, or pneumatosis. No free fluid or loculated fluid collection. Appendix is unremarkable. Uterus is absent urinary bladder only mildly filled and appears within normal limits. Atherosclerotic vascular disease with no aneurysm of the abdominal aorta. Small fat containing right inguinal hernia. Degenerative changes of the spine. No acute fracture. Procedure Note Ira Watson MD - 02/18/2025 INDICATION: Bowel obstruction suspected CT abdomen and pelvis with contrast Comparison: None provided Findings: No consolidation or pleural effusion. Minimal lingular subsegmental atelectasis/scarring. The gallbladder is surgically absent. No biliary ductal dilatation. The liver is enlarged and demonstrates mild low parenchymal attenuation suggestive of mild steatosis. The spleen, pancreas and right adrenal are unremarkable. Nonspecific 1.7 cm left adrenal mass. Enhancement of bilateral kidneys with no stones along the course of the ureters and no hydronephrosis or hydroureter. No perinephric strandingor perinephric fluid. No bowel obstruction, pneumoperitoneum, or pneumatosis. No free fluid or loculated fluid collection. Appendix is unremarkable. Uterus is absent urinary bladder only mildly filled and appears within normal limits. Atherosclerotic vascular disease with no aneurysm of the abdominalaorta. Small fat containing right inguinal hernia. Degenerative changes of the spine. No acute fracture. IMPRESSION: 1. No acute findings. 2. Hepatomegaly and mild hepatic steatosis. 3. 1.7 cm nonspecific left adrenal lesion. Follow-up nonemergent adrenal CT or MRI could be obtained to further characterize. This document has been electronically signed by: Ira Watson MD on 02/18/2025 18:46:50 Efe Holley MD IM CT PROCEDURES Final Result * Blood culture (02/18/2025 5:39 PM EDT) Only the most recent of2 resultswithin the time period is included. Culture, Blood No growth at 5 days 02/23/2025 6:01 PM EDT [facility] Blood Venous blood specimen / Unknown Venipuncture / Unknown 02/18/2025 5:39 PM EDT 02/18/2025 5:40 PM EDT Efe Holley MD LAB MICROBIOLOGY - GENER AL ORDERABLES Final Result [facility] [address] [place] [address], * Respiratory virus panel molecular study (02/18/2025 5:23 PM EDT) Pathologist [facility] Adenovirus Detection by PCR Not Detected Not Detected LAB MICROBIOLOGY METHOD 02/18/2025 7:41 PM EDT [facility] Influenza A PCR Not Detected Not Detected LAB MICROBIOLOGY METHOD 02/18/2025 7:41 PM EDT [facility] Influenza B PCR Not Detected Not Detected LAB MICROBIOLOGY METHOD 02/18/2025 7:41 PM EDT [facility] Coronavirus 229E Not Detected Not Detected LAB MICROBIOLOGY METHOD 02/18/2025 7:41 PM EDT [facility] Coronavirus HKU1 Not Detected Not Detected LAB MICROBIOLOGY METHOD 02/18/2025 7:41 PM EDT [facility] Coronavirus OC43 Not Detected Not Detected LAB MICROBIOLOGY METHOD 02/18/2025 7:41 PM EDT [facility] Coronavirus NL63 Not Detected Not Detected LAB MICROBIOLOGY METHOD 02/18/2025 7:41 PM EDT [facility] Parainfluenza Virus 1 Not Detected Not Detected LAB MICROBIOLOGY METHOD 02/18/2025 7:41 PM EDT [facility] Parainfluenza Virus 2 Not Detected Not Detected LAB MICROBIOLOGY METHOD 02/18/2025 7:41 PM EDT [facility] Parainfluenza Virus 3 Not Detected Not Detected LAB MICROBIOLOGY METHOD 02/18/2025 7:41 PM EDT [facility] Parainfluenza Virus 4 Not Detected Not Detected LAB MICROBIOLOGY METHOD 02/18/2025 7:41 PM EDT [facility] RSV PCR Not Detected Not Detected LAB MICROBIOLOGY METHOD 02/18/2025 7:41 PM EDT [facility] Human Metapneumovirus A and B Not Detected Not Detected LAB MICROBIOLOGY METHOD 02/18/2025 7:41 PM EDT [facility] Rhinovirus/Entero virus Not Detected Not Detected LAB MICROBIOLOGY METHOD 02/18/2025 7:41 PM EDT [facility] Bordetella pertussis Not Detected Not Detected LAB MICROBIOLOGY METHOD 02/[facility]2025 7:[facility] Bordetella parapertussis Not Detected Not Detected LAB MICROBIOLOGY METHOD 02/18/2025 7:41 PM [facility] Mycoplasma pneumo by PCR Not Detected Not Detected LAB MICROBIOLOGY METHOD 02/18/2025 7:41 PM EDT [facility] Chlamydia pneumoniae Not Detected Not Detected LAB MICROBIOLOGY METHOD 02/18/2025 7:41 PM EDT [facility] SARS COV-2 Not Detected Not Detected LAB MICROBIOLOGY METHOD 02/18/2025 7:41 PM [facility] Swab Both anterior nares / Unknown Non-blood Collection / Unknown 02/18/2025 5:23 PM EDT 02/18/2025 6:51 PM EDT [facility] - 02/18/2025 7:41 PM EDT Testing was performed using the [employer] Respiratory Pathogen PCR Assay. All results must be correlated with the clinical findings. Results should not be used as the sole basis for diagnosis. False Negative results may occur from the presence of sequence variants in the region targeted by the assay or the presence of inhibitors. Results may be affected by concurrent antiviral/antimicrobial therapy or levels of organisms that are below the limit of detection. us Efe Holley MD LAB MICROBIOLOGY - GENER AL ORDERABLES Final Result [facility] [address] [place] [address], [place] [phone] * Magnesium (02/18/2025 5:23 PM EDT) [facility] Magnesium 1.9 1.9 - 2.6 mg/dL LAB CHEMISTRY METHOD 02/18/2025 10:44 PM EDT [facility] Blood Venous blood specimen / Unknown Venipuncture / Unknown 02/18/2025 5:23 PM EDT 02/18/2025 5:33 PM EDT Marya BENITEZ LAB BLOOD ORDERABLES Final Re sult Performing Organization Address City/[facility]/ZIP Co de Phone Number [facility] [address] [place] [address], [place] [phone] * Diabetes Foot Exam (10/20/2023) Pathologist [facility] Diabetes: Annual Foot Exam Abstracted Historical Provider HEALTH MAINTENANCE Final Result * Hepatitis C Screening (11/16/2021) [facility] Hepatitis C Screening Abstracted Historical Provider HEALTH MAINTENANCE Final Result * Pap Smear (02/03/2020) Pathologist [facility] Pap smear No Interpretation , Abstracted Historical Provider HEALTH MAINTENANCE Final Result * DX MAMMO INCL CAD UNI (07/03/2018 10:16 AM EST) Anatomical Region Laterality Modality Mammography 06/30/2018 3:05 PM EST Narrative 07/03/2018 11:02 AM EST 2 view digital mammogram right breast x2 for clip placements: See combined report with ultrasound-guided core biopsy same day. Procedure Note Beverley Delgado MD - 06/12/2022 2 view digital mammogram right breast x2 for clip placements: See combinedreport with ultrasound-guided core biopsy same day. us Leslie Benoit MD IMG BI PROCEDURES Final Resu lt * Colonoscopy (02/10/2018) Colonoscopy No Interpretation , Abstracted Anatomical Region Laterality Modality Other us Historical Provider MD HEALTH MAINTENANCE Final Result from Last 3 Months or Most Recently Relevant to Health Maintenance Insurance [facility] MEDIC[facility] Member Subscriber Plan / Payer (Ef fective 2022-Present) Name:MYLES FIELDS Relation to Subscriber:Self Name:Myles Tiwari Payer ID:[id number] Group ID:[id number] Type:Not on file Address: [place] [address] [place] [id number] Advance Directives Documents on File Type Date Recorded Patient Regulatory Affairs Coordinator Expl anation Health Care Decision (hx) 02/07/2023 AD GONZALEZ DIRECTIVE Health Care Decision (hx) 02/07/2023 AD GONZALEZ DIRECTIVE Health Care Decision (hx) 02/07/2023 AD GONZALEZ DIRECTIVE Health Care Decision (hx) 02/07/2023 AD GONZALEZ DIRECTIVE Health Care Decision (hx) 02/07/2023 AD GONZALEZ DIRECTIVE Health Care Decision (hx) 02/07/2023 AD GONZALEZ DIRECTIVE Health Care Decision (hx) 02/07/2023 AD GONZALEZ DIRECTIVE Health Care Decision (hx) 02/07/2023 AD GONZALEZ DIRECTIVE Health Care Decision (hx) 02/07/2023 AD GONZALEZ DIRECTIVE Health Care Decision (hx) 02/07/2023 AD GONZALEZ DIRECTIVE Health Care Decision (hx) 02/07/2023 AD GONZALEZ DIRECTIVE Health Care Decision (hx) 02/07/2023 AD GONZALEZ DIRECTIVE Health Care Decision (hx) 02/07/2023 AD GONZALEZ DIRECTIVE Health Care Decision (hx) 02/07/2023 AD GONZALEZ DIRECTIVE Health Care Decision (hx) 02/07/2023 AD GONZALEZ DIRECTIVE Health Care Decision (hx) 02/07/2023 AD GONZALEZ DIRECTIVE Health Care Decision (hx) 02/07/2023 AD GONZALEZ DIRECTIVE Health Care Decision (hx) 02/07/2023 AD GONZALEZ DIRECTIVE * Full Code - Default (Latest Code Status on File) Date Activated Date Inactivated Comments 02/18/2025 10:17 PM 02/19/2025 7:21 PM This is ord er is used when code status has not been discussed with the patient, or code status is otherwise unknown/unconfirmed To update the patient's code status, place a code status order. Do not modify or discontinue any currently active code status orders. Care Teams Hay Baler Relationship Specialty Start Date End Date Edis Jorgensen MD [address] [place] [address] PCP - General Internal Medicine 11/29/21
--- OUTSIDE RECORDS SUMMARY | 2025-05-05 17:03 | XMS_ITS | Encounter Summary ---
Author Organization [facility] Address [address] [place] [address] Phone Care Team Providers Care Director Of Medical Education Name Role Phone Edis Jorgensen MD Primary Care Provider Encounter Details Date Type Department Care Team (Late st Contact Info) Description 10/14/2024 Orders Only [facility] [address] [place] [address] Selam Soares [address] [place] [phone] Social History Tobacco Use Types Packs/Day Years Used Date Smoking Tobacco: Never Assessed Comments Unknown Sex and Gender Information Value Date Recorded Sex Assigned at Female 04/17/2023 9:38 AM EDT Legal Sex Female 8:28 AM EDT Gender Identity Female 04/17/2023 9:38 AM EDT Sexual Orientation Straight 04/17/2023 9: 38 AM EDT documented as of this encounter Plan of Treatment Upcoming Encounters Date Type Department Care Team (Late st Contact Info) Description 09/29/2025 1:45 PM EDT Office Visit [facility] [address] [place] [address] Praveen Sam MD [address] [place] [address] documented as of this encounter Visit Diagnoses Not on filedocumented in this encounter Care Teams Director Of Medical Education Relationship Specialty Start Date End Date Edis Jorgensen MD [address] [place] [phone] PCP - [facility] 02/05/23 documented as of this encounter
--- OUTSIDE RECORDS SUMMARY | 2025-05-05 17:03 | XMS_ITS | Encounter Summary ---
Author Organization [facility] Address [address] [place] [address] Encounters * CPT with Medical inst[facility] at [facility] on 2025-02-26 PMH - HTN, GERD, Obesity, MDD, DM, hx breast cancer, Asthma, DISH, Diaghphragmatic hernia without obstruction, Incontinence. Member inpatient at [facility] 02/18-02/19/25 for Sepsis, cystitis and abdominal pain. She was treated with IV antibiotics and discharged without oral treatment. She reports feeling better overall but notesher urine is beginning to appear cloudy and would like it rechecked. She requests visit 02/26/25. { reasonForRequest : , patientReports : , denies&quot ;:[], chiefComplaints : Urinary Symptoms , pmh : Cancer, Gastroesophageal Reflux Disease (GERD), Hypertension, Obesity, Depression, Diabetes Mellitus Type 2, Asthma", allergies : Latex, Shellfish Derived, Amoxil , otherAllergies : null, painAssessment : , visitOutcome : , additionalComments : HPI reviewed } [facility] visit for a female patient with concern for UTI. Patient was admitted to the hospital approximately one week ago for G.I. symptoms accompanying what she believed was a urinary tract infection.Patient treated with IV antibiotics and discharged home. No oral antibiotics prescribed. Patient feels as if condition never fully improved now noting cloudy foul smelling urine and urine retention. Patient presents appearing well. Vital signs taken is listed. No fever noted on exam. Patient was able to provide urine specimen with dipstick analysis unremarkable for UTI and culture specimen obtained. Consulted with [facility] [place] advised starting patient on oral antibiotics pending results of urine culture. Patient encouraged to monitor symptoms and follow up with PCP and may request reevaluation. Urine specimen brought to [facility] for analysis. Patient education provided. ORAL_MEDICATION, EKG, POC_BLOODWORK, GLUCOSE Written by [employer] on 2025-02-26
--- OUTSIDE RECORDS SUMMARY | 2025-05-05 17:03 | XMS_ITS | Encounter Summary ---
Author Organization [facility] Address [address] [place] [address] Phone Care Team Providers Care Adult Parole Officer Name Role Phone Edis Jorgensen MD Primary Care Provider Encounter Details Date Type Department Care Team (Late st Contact Info) Description 07/08/2024 Documentation Only [facility] [address] [place] [address] Salima Mosley [address] [place] [address] Social History Tobacco Use Types Packs/Day [...] Visit [facility] [address] [place] [address] Praveen Sam MD [address] [place] [address] [place] [address] documented as of this encounter Visit Diagnoses Not on filedocumented in this encounter Care Teams Adult Parole Officer Relationship Specialty Start Date End Date Edis Jorgensen MD [address] [place] [phone] PCP - [facility] 02/05/23 documented as of this encounter
--- OUTSIDE RECORDS SUMMARY | 2025-05-05 17:03 | XMS_ITS | Encounter Summary ---
Author Organization [facility] Address [address] [place] [address] Encounters * CPT with Medical instED at [facility] on 2025-02-16 { reasonForRequest : nausea/diarrhea /vomiting/dizzy , patientReports : Diarrhea no blood in stool; Nausea with or without vomiting; Inability to tolerate foods, fluids or daily medications , denies :[ Sharp focal or diffuse abdominal pain ", Vomiting blood/coffee ground material , Bloating, jaundice new onset with pain , Nausea and vomiting greater than 2 hours with abdominal pain , Tearing pain that radiates to back , Food Impaction , Vague abdominal pain greater than 24 hours , Constipation ], chiefComplaints : Abdominal Pain , pmh": Cancer, Gastroesophageal Reflux Disease (GERD), Other , allergies : Latex , otherAllergies :null, painAssessment : , visitOutco me : , additionalComments : 59 y.o female complains of Abdominal Pain \n\nPatient reports nausea and vomiting, one episode, but 48 hours of loose stool. \nPatient deniesany abd pain. \nShe reports having muscle cramps in her legs. She had one episode of throwing up bile , no blood. \nShe denies any blood in her stool, which is normal in color. She does take oxy so she often has hard stools, last normal BM was 3 days ago, then the loose stool started. \nShe does have a hiatal hernia and acid reflex. and takes Omeprazole. \nPMH >taking estrogen blockers >breast cancer. \nPt will put dog away \nI provided information on the mobile health provider response time and advised the patient and/or caregiver to monitor reported signs and symptoms. I discussedthe warning signs of when to seek emergency care. } Patient alert and oriented, complains of upper epigastric pain, lower diffuse, abdominal pain, nausea, vomiting times three days. Patient also reports disruption in morphine prescription supply, patient cut dose by 50% three days ago, last dose was yesterday. Patient reports diarrhea up to 20 times, vomit times one yesterday morning, no black or bloody stool or vomit. Patient denies nasal congestion, sore throat, coughing, difficulty breathing. Patient denies recent sick contacts or travel. Patient denies chest pain falls, or any other pain or complaints. Patient denies dysuria. Patient, pink, warm, dry, lung sounds clear negative increase work of breathing positive full sentences abdomen soft, nontender extremities unremarkable no edema noted. Patient walks to bathroom twice during visit. Negative CVA tenderness. [facility] orders administered without complication using five rights. Patient reports she feels better with decrease in nausea and abdominal pain after medication and fluid administration. Patient reports she???s in contact with PCP???s office to refill opiate prescription. Patient reports satisfaction with visit. Red flags patient education discussed. IV_(FLUIDS_AND/OR_MEDICATION), MEDICATION_IM Written by Medical [facility] on 2025-02-16
--- OUTSIDE RECORDS SUMMARY | 2025-05-05 17:03 | XMS_ITS | Encounter Summary ---
Author Organization [facility] Address [address] [place] [address] Phone Care Team Providers Care Premium Auditor Name Role Phone Edis Jorgensen MD Primary Care Provider Reason for Visit * Reason Onset Date Comments Med Refill 07/07/2024 Encounter Details Date Type Department Care Team (Late st Contact Info) Description 07/07/2024 Refill [facility] [address] [place] [phone] Praveen Sam MD [address] [place] [phone] Social History Tobacco Use Types Packs/Day Years [...] Visit [facility] [address] [place] [place] [phone] Praveen Sam MD [address] [place] [address] documented as of this encounter Visit Diagnoses Not on filedocumented in this encounter Care Teams Premium Auditor Relationship Specialty Start Date End Date Edis Jorgensen MD [address] [place] [phone] PCP - [facility] 02/05/23 documented as of this encounter
--- OUTSIDE RECORDS SUMMARY | 2025-05-05 17:03 | XMS_ITS | Continuity of Care Document ---
Author Name [facility], Medical Address [address] [place] [address] Organization Unknown Address [address] [place] [address] Medications No known medications Problems No known problems
--- OUTSIDE RECORDS SUMMARY | 2025-05-05 17:03 | XMS_ITS | Encounter Summary ---
Author Organization [facility] Address [address] [place] [address] Phone Care Team Providers Care Security Guard Dispatcher Name Role Phone Edis Jorgensen MD Primary Care Provider Reason for Visit * Reason Onset Date Comments Med Refill 08/07/2024 Encounter Details Date Type Department Care Team (Late st Contact Info) Description 08/07/2024 Refill [facility] [address] [place] [phone] Praveen Sam MD [address] [place] [phone] Social History Tobacco Use Types Packs/Day Years [...] Visit [facility] [address] [place] [phone] Praveen Sam MD [address] [place] [address] documented as of this encounter Visit Diagnoses Not on filedocumented in this encounter Care Teams Security Guard Dispatcher Relationship Specialty Start Date End Date Edis Jorgensen MD [address] [place] [phone] PCP - [facility] 02/05/23 documented as of this encounter
--- OUTSIDE RECORDS SUMMARY | 2025-05-05 17:03 | XMS_ITS | Encounter Summary ---
Author Organization [facility] Address [address] [place] [address] Phone Care Team Providers Care Guest Laundry Attendant Name Role Phone Edis Jorgensen MD Primary Care Provider Reason for Visit * Reason Onset Date Comments Med Refill 01/24/2024 Encounter Details Date Type Department Care Team (Late Contact Info) Description 01/24/2024 Refill [facility] [address] [place] [phone] Praveen Sam MD [address] [place] [phone] Social History Tobacco Use Types Packs/Day Years [...] Encounters Date Type Department Care Team (Late Contact Info) Description 09/29/2025 1:45 PM EDT Office Visit [facility] [address] [place] [phone] Praveen Sam MD [address] [place] [place] [address] documented as of this encounter Visit Diagnoses Not on filedocumented in this encounter Care Teams Guest Laundry Attendant Relationship Specialty Start Date End Date Edis Jorgensen MD [address] [place] [phone] PCP - [facility] 02/05/23 documented as of this encounter
--- OUTSIDE RECORDS SUMMARY | 2025-05-05 17:03 | XMS_ITS | Encounter Summary ---
Author Organization [facility] Address [address] [place] [address] Phone Care Team Providers Care Orchard Hand Name Role Phone Edis Jorgensen MD Primary Care Provider [phone] Reason for Visit * Reason Onset Date Comments Med Refill 07/08/2024 Encounter Details Date Type Department Care Team (Late st Contact Info) Description 07/08/2024 Refill [facility] [address] [phone] Praveen Sam MD [address] [place] [phone] Social History Tobacco Use Types Packs/Day Years [...] Visit [facility] [address] [place] [phone] Praveen Sam MD [address] [place] [address] documented as of this encounter Visit Diagnoses Not on filedocumented in this encounter Care Teams Orchard Hand Relationship Specialty Start Date End Date Edis Jorgensen MD [address] [place] [phone] PCP - [facility] 02/05/23 documented as of this encounter
--- OUTSIDE RECORDS SUMMARY | 2025-05-05 17:03 | XMS_ITS | Clinical Summary ---
Author Organization [facility] Address [address] [place] [address] [place] [address] Phone Care Team Providers Care Associate Professor Of Kinesiology Name Role Phone Edis Jorgensen MD Primary Care Provider Allergies Active Allergy Reactions Criticality Noted Date Comments Amoxicillin Other (see comments) Medium 08/13/2017 Yeast infection Fish Oil Anaphylaxis High 08/13/2017 Latex Other (see comments) Medium 09/09/2018 Hands bleeding Shellfish Allergy Anaphylaxis High 09/09/2018 Medications amLODIPine (NORVASC) 5 MG tablet Take 5 mg by mouth 1 (one) time each day 3 Active cyclobenzaprine (FLEXERIL) 5 MG tablet TAKE 1 TABLET BY MOUTH TWICE DAILY NEEDED FOR MUSCLE SPASMS 3 Active DULoxetine (CYMBALTA) [address] capsule Take 60 mg by mouth 1 (one) time each day 3 Active exemestane (AROMASIN) 25 MG chemo tablet 3 Active metFORMIN XR (GLUCOPHAGE-XR) 500 MG 24 hr tablet Take 500 mg by mouth 1 (one) time each day with breakfast 3 Active metoprolol tartrate (LOPRESSOR) 50 MG tablet Take 50 mg by mouth in the morning and 50 mg in the evening. 3 Active oxyCODONE (ROXICODONE) 10 MG immediate release tablet 3 Active pregabalin (LYRICA) 150 MG capsule Take 150 mg by mouth in the morning and 150 mg at noon and 150 mg in the evening. 3 Active simvastatin (ZOCOR) 20 MG tablet Take 20 mg by mouth every night 3 Active morphine (MIRIAM) 30 MG 24 hr capsule Take 30 mg by mouth 1 (one) time each day Do not crush or chew. Active Acetaminophen Extra Strength 500 MG tablet Take by mouth Ac tive Melatonin 10 MG capsule Take by mouth Active Cholecalciferol (Vitamin D) 125 MCG (5000 UT) capsule Take by mouth Active sertraline (ZOLOFT) 25 MG tablet Take 25 mg by mouth 1 (one) time each day Active cetirizine (ZyrTEC) 10 MG tablet Take 1 tablet (10 mg total) by mouth 1 (one) time each day 90 tablet 3 5 07/17/19 26 Active fenofibrate (TRICOR) 54 MG tablet Take 1 tablet (54 mg total) by mouth 1 (one) time each day 90 tablet 3 5 07/17/19 26 Active omeprazole (PriLOSEC) [address] capsule Take 1 capsule (40 mg total) by mouth 1 (one) time each day 90 capsule 3 5 07/17/19 26 Active Lancets (OneTouch Delica Plus [id number]) [facility] USE TO TEST BLOOD GLUCOSE EVERY DAY Active atorvastatin (LIPITOR) 20 MG tablet Take 20 mg by mouth 1 (one) time each day 5 Active famotidine (PEPCID) 20 MG tablet Take 20 mg by mouth every night 5 09/11/19 26 Active glipiZIDE (GLUCOTROL XL) 5 MG 24 hr tablet 5 Active lisinopril 20 MG tablet TAKE 1 TABLET(20 MG) BY MOUTH 1 TIME EACH DAY 90 tablet 3 5 Active carBAMazepine (TEGretol) 200 MG tablet Take 1 tablet (200 mg total) by mouth at bed time at bedtime 90 tablet 3 5 03/09/20 26 Active Active Problems Problem Noted Date Diagnosed Date Stage 3 chronic kidney disease 04/20/2024 Type 2 diabetes mellitus 04/17/2023 Essential hypertension 04/17/2023 Encounters Date Type Department Care Team Description 03/08/2025 [facility]ill [facility] [address] [place] [phone] Praveen Sam MD 02/08/2025 Refill [facility] [address] [place] [phone] Praveen Sam MD from Last 3 Months Social History Tobacco Use Types Packs/Day Years Used Date Smoking Tobacco: Never Assessed Comments Unknown Sex and Gender Information Value Date Recorded Sex Assigned at Female 04/17/2023 9:38 AM EDT Legal Sex Female 8:28 AM EDT Gender Identity Female 04/17/2023 9:38 AM EDT Sexual Orientation Straight 04/17/2023 9: 38 AM EDT Plan of Treatment Upcoming Encounters Date Type Department Care Team (Late st Contact Info) Description 09/29/2025 1:45 PM EDT Office [facility] [address] [place] [phone] Praveen Sam MD [address] [place] [address] [place] [phone] Health Maintenance Due Date Last Done Comments Breast Cancer Screening 1967 Hepatitis B Vaccine (1 of 3 - 19+ 3-dose series) 1986 Colorectal Cancer Screening: Annual FOBT 2016 Colorectal Cancer Screening: Colonoscopy 2016 Colorectal Cancer Screening: Sigmoidoscopy 2016 Pneumococcal Vaccine: 50+ Ye ars (2 of 2 - PCV) 03/16/2021 03/16/2020 Diabetes: Ophthalmology Exam 04/17/2023 Diabetes: Pedal Pulse Checked 04/17/2023 Diabetes: Sensory Foot Exam 04/17/2023 Diabetes: Visual Foot Exam 04/17/2023 Influenza Vaccine (#1) 2025 4, 04/02/2023, 04/20/2021, Additional history exists Diabetes: Hemoglobin A1C 06/02/2025 025, 03/03/2025, 12/16/2023, Additional history exists Pneumococcal Vaccine: Peds ( 0 to 5 Years) and At-Risk Patients (6 to 49 Years) Discontinued 03/16/2020 Insurance [facility] ([id number]) [facility] SNP ([id number]) Care Teams Associate Professor Of Kinesiology Relationship Specialty Start Date End Date Edis Jorgensen MD [address] [place] [phone] PCP - [facility] 02/05/23
--- OUTSIDE RECORDS SUMMARY | 2025-05-05 17:03 | XMS_ITS | Continuity of Care Document ---
Author Name [facility], Medical Address [address] [place] [phone] Organization Unknown Address [address] [place] [address] Medications No known medications Problems No known problems
--- OUTSIDE RECORDS SUMMARY | 2025-05-05 17:04 | XMS_ITS | Clinical Summary ---
Author Organization [facility] Address [address] [place] [address] Care Team Providers Care Marketing Associate Name Role Phone Edis Jorgensen MD Primary Care Provider Allergies Active Allergy Reactions Criticality Noted Date Comments Amoxicillin Other (See Comments) Medium 09/08/2018 Yeast infection Latex Other (See Comments) Medium 09/09/2018 Hands bleeding Seafood Anaphylaxis High 10/07/2018 Shellfish Allergy Anaphylaxis High 09/09/2018 Medications Medication Sig Dispensed Refills Start Date End Date Status fluticasone (FLONASE) 50 MCG/ACT nasal spray spray/apply 1 spray in each nostril daily. 0 Active metoprolol tartrate (LOPRESSOR) 50 MG tablet Take 1 tablet (50 mg total) by mouth 2 (two) times a day. 0 Active simvastatin (ZOCOR) tablet 20 mg Take 1 tablet (20 mg total) by mouth every night at bedtime. 0 Active lisinopril (PRINIVIL,ZESTRIL) tablet 10 mg Take 1 tablet (10 mg total) by mouth daily. 0 Active pregabalin (LYRICA) 75 MG capsule 0 02/26/2020 Active sertraline (ZOLOFT) 25 MG tablet Take 1 tablet (25 mg total) by mouth daily. 0 03/16/2020 Active Fluticasone-Salmeter ol 232-14 MCG/ACT AEPB Take 1 puff by mouth 2 (two) times a day. 0 08/30/2020 Active DULoxetine (CYMBALTA) DR capsule 60 mg 0 10/19/2020 Active carBAMazepine (TEGretol) 200 MG tablet 0 12/17/2020 Active exemestane (AROMASIN) 25 MG tablet TAKE 1 TABLET(25 MG) BY MOUTH DAILY 90 tablet 3 10/28/2023 Active famotidine (PEPCID) 20 MG tablet Take 1 tablet (20 mg total) by mouth 2 (two) times a day. 0 Active AMLODIPINE BESYLATE PO Take 5 mg by mouth. 0 Active polyethylene glycol (MIRALAX) 17 g packet Take 17 g by mouth daily. 0 Active oxyCODONE HCl (ROXICODONE) 10 MG TABS Take 1 tablet (10 mg total) by mouth every 6 (six) hours as needed for pain. 120 tablet 0 04/07/2024 Active Morphine Sulfate ER (MS CONTIN) 30 MG TBCR Take 1 tablet (30 mg total) by mouth every 12 (twelve) hours. 60 tablet 0 04/20/2024 Active Active Problems Problem Noted Date Diagnosed Date Abscess of chest wall 10/06/2021 Type 2 diabetes mellitus wit hout complication, without long-term current use of insulin 01/09/2021 Anterior chest wall pain 01/01/2020 Seroma of breast 10/23/2019 Anxiety and depression 08/21/2019 Radiation induced neuropathy 08/20/2019 Overview: Follows with neurology Radiation dermatitis 07/24/2019 Leg cramps 02/09/2019 Drug-induced polyneuropathy 01/27/2019 Ganglion cyst 12/30/2018 Essential hypertension 12/16/2018 Cellulitis of chest wall 12/09/2018 Arterial hypotension 11/25/2018 Musculoskeletal pain 10/20/2018 Intractable vomiting with nausea 10/20/2018 Chemotherapy-induced nausea 10/20/2018 Port-A-Cath in place 10/07/2018 Hypokalemia 10/07/2018 Malignant neoplasm of overla pping sites of right breast in female, estrogen receptor positive 09/09/2018 Cancer Staging:Pathologic stage from 08/27/2018:Stage IB(pT1c(m), pN2a(sn), cM0, G1, ER: Positive, NH: Positive, HER2: Negative) - Signed by Fred Mauro MD on 10/04/2018 Clinical: Unsigned DISH (diffuse idiopathic skeletal hyperostosis) 09/09/2018 Resolved Problems Problem Noted Date Diagnosed Date Resolved Date New daily persistent headache 02/04/2019 10/10/2020 Scalp pain 01/27/2019 10/10/2020 Skin rash 11/25/2018 10/10/2020 Immunizations Name Administration Dates Next Due Covid-19 (J&J) 10/02/2020 Covid-19 (Pfizer) Dilution Required 04/21/2021 Family History Medical History Relation Name Comments Arthritis Brother Cancer Maternal Grandmother colon Arthritis Mother Cancer Mother breast Diabetes Paternal Grandfather Arthritis Paternal Grandmother Relation Name Status Comments Brother Maternal Grandmother Mother Paternal Grandfather Paternal Grandmother Social History Tobacco Use Types Packs/Day Years Used Date Smoking Tobacco: Light Smoker Cigarettes 0.3 Smokeless Tobacco: Never Alcohol Use Standard Drinks/Week Comments No 0 (1 standard drink = 0.6 oz pur e alcohol) Sex and Gender Information Value Date Recorded Sex Assigned at Female 11/17/2021 3:46 PM EDT Gender Identity Not on file Sexual Orientation Not on file Job Start Date Occupation Industry Not on file Not on file Not on file Last Filed Vital Signs Vital Sign Reading Time Taken Comments Blood Pressure 149/71 01/10/2024 2:37 PM EDT Pulse 70 01/10/2024 2:37 PM EDT Temperature 35.4 C (95.8 F) 01/10/2024 2:37 PM EDT Respiratory Rate 18 12/04/2022 2:44 PM EDT Oxygen Saturation 98% 01/10/2024 2:37 PM EDT Inhaled Oxygen Concentration - - Weight 136.9 kg (301 lb 12.8 oz) 01/10/2024 2:37 PM EDT Height 170.2 cm (5' 7 ) 01/10/2024 2:37 PM EDT Body Mass Index 47.27 01/10/2024 2:37 PM EDT Plan of Treatment Health Maintenance Due Date Last Done Comments Hepatitis B Vaccines (1 of 3 - 3-dose series) 1967 Hepatitis C Screening 1967 Depression Screening 1979 BMI Counseling 1985 Preventative Health Evaluation 1985 Tobacco Cessation Counseling 1985 Cervical Cancer Screening (Pap Smear) 1988 Colon Cancer Screening (Colonoscopy) 2012 Breast Cancer Screening (Mammogram) 2017 COVID-19 Vaccine ( season) 2025 04/02/2023, 10/05/2021, 04/21/2021, Additional history exists Influenza Vaccine (#1) 2025 3, 02/27/2020, 02/27/2020, Additional history exists DTap / Tdap / Td (2 - Td or Tdap) 10/05/2026 10/05/2016 Shingrix-Zoster Vaccine Completed 06/06/2018, 04/07 Pneumococcal Vaccine Completed 04/02/2023, 03/16/20 20 RSV Ped < 20 months Aged Out No longe r eligible based on patient's age to complete this topic Care Teams Marketing Associate Relationship Specialty Start Date End Date Edis Jorgensen MD [address] [place] [id number] PCP - General Hospitalist Medicine 05/21/22
--- OUTSIDE RECORDS SUMMARY | 2025-05-05 17:04 | XMS_ITS ---
Author Organization [facility] Address [address] [place] [address] Care Team Providers Care Human Resources Supervisor Name Role Phone Edis Jorgensen MD Primary Care Provider Active Problems Problem Noted Date Diagnosed Date [...] 08/27/2018:Stage IB(pT1c(m), pN2a(sn), cM0, G1, ER: Positive, NC: Positive, HER2: Negative) - Signed by Fred Mauro MD on 10/04/2018 Clinical: Unsigned DISH (diffuse idiopathic skeletal hyperostosis) 09/09/2018 Current Oncology Plans No current plan information found. Past Plans ONCOLOGY INFUSION THERAPY Plan Name Start Date Discontinue Date Treatment Medications Discontinue Reason Plan Provider [facility] GOSERELIN 3.6MG (ZOLADEX) 11/23/2021 12/21/2022 goserelin (ZOLADEX) Therapy Complete Fred Mauro MD Radiation Treatments * No radiation treatments are documented for this patient in [facility]. Treatments may have been administered in another system. Resolved Problems Problem Noted Date Diagnosed Date Resolved Date New daily persistent headache 02/04/2019 10/10/2020 Scalp pain 01/27/2019 10/10/2020 Skin rash 11/25/2018 10/10/2020
--- OUTSIDE RECORDS SUMMARY | 2025-05-05 17:04 | XMS_ITS | Encounter Summary ---
Author Organization [facility] Address [address] [place] [address] Phone Care Team Providers Care Paint Stockman Name Role Phone Edis Jorgensen MD Primary Care Provider Encounter Details Date Type Department Care Team (Late st Contact Info) Description 02/15/2023 Documentation Only [facility] [address] [place] [address] Edis Jorgensen MD [address] [place] [address] Social History Tobacco Use Types Packs/Day Years [...] Visit [facility] [address] [address] Praveen Sam MD [address] [place] [address] [place] [address] documented as of this encounter Visit Diagnoses Not on filedocumented in this encounter Care Teams Paint Stockman Relationship Specialty Start Date End Date Edis Jorgensen MD [address] [place] [phone] PCP - [facility] 02/05/23 documented as of this encounter
--- OUTSIDE RECORDS SUMMARY | 2025-05-05 17:04 | XMS_ITS | Data Portability ---
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 [employer] Name Role Phone JANAE RACHEL Primary Care Provider [phone] HIM [facility] OTHER Assessment Encounter Date Assessment Date Assessment LastModified by Organization Details LastModified Time 03/21/2023 03/21/2023 service called for fever, fatigue found 57 elyssa c/o 2d fever, fatigue, reduced appetitie Tmax 100.9, improved to PO acetaminophen denies fever, chills able continue regular PO fluid intake VSS, currently afeb reportedly lung exam neg #Viral URI uncomplicated at this time continue suportive care notify service if unable tolerate PO fluids or temp escalation otherwise return to primary team [email or web address] Not available 03/21/2023 18:53:26 02/16/2025 02/16/2025 I provided real -time medical direction via phone for this encounter, and was available for additional phone based assistance as needed. I have reviewed and agree with the Assessment and Plan as documented by the Billiard Parlor Manager. We discussed the diagnostic uncertainty of home visits and the risk associated with this. In this case the patient and I felt this to be an acceptable and reasonable amount of risk given the benefit of avoiding an ED visit. The patient given the opportunity to ask questions. Advised if develops CP/severe SOB/turning blue/ severe abd pain /uncontrolled n/v/d or black/bloody emesis or stool/ AMS/ syncope/uncontro lled tremors/ hi fever to call 911- verbalized understanding of instruction [email or web address] Not available 02/16/2025 20:10:54 02/18/2025 02/18/2025 I have reviewed and agree with the Assessment and Plan as documented by the Billiard Parlor Manager. I provided real-time medical direction via phone for this encounter, and was available for additional phone based assistance as needed. I would add/emphasize: Patient seen for N/V/D poor PO intake in past 4 days. ABdominal discomfort. AVSS, afebrile somewhat uncomfortable appearing. Abdomen nontender per report. GIven duration of sxs strongly recommended pt be evaluated in the ED for consideration of imaging. Pt declined stating she understood risks but desired ongoing attempt at home management and watchful waiting. treated w/ fluids and zofran with improvement. REviewed need for ED eval if not improving in next 24 hours. Pt voices understanding. No CP or SOB reported. [email or web address] Not available 02/19/2025 08:43:31 02/26/2025 02/26/2025 As noted, we were called to see this patient regarding concerns of UTI. Evaluation in the field was performed by my government affairs researcher colleague, as noted above, I provided real-time direction and supervision for this visit. Patient states she was admitted to the hospital for vomiting and diarrhea and was treated for UTI. She states that her only symptom was a cloudy urine which resolved after treatment in the hospital. It came back on Saturday. Reviewing the chart it appears the patient was admitted for gastroenteritis. They were questioning a UTI however patient usually has dysuria which she did not have. They did not run a urine culture and decided to discontinue antibiotics. Patient's urine dip does not show any leukocytes or nitrites. She was advised that this is likely due to the fact that she was on antibiotics in the hospital. Patient states that you prefer to start antibiotics while waiting for the urine culture result. Prescription for cefpodoxime was provided. Patient was advised to cause back with any questions or concerns. Impression: UTI Plan: Follow-up PCP Primary care, consider Labs Disposition: We discussed the diagnostic uncertainty of home visits and the risk associated with this. In this case, the patient and I felt this to be an acceptable and reasonable amount of risk given the benefit of avoiding an ED visit. We discussed the need to seek care urgently/emergen tly in the setting of any new or worsening serious symptoms, particularly Fever, chest pain, shortness of breath, abdominal pain. [email or web address] Not available 02/26/2025 10:51:14 Plan of Treatment Reminders Order Date Submit Date Provider Last Modified By Organization Details Last Modified Time Details Appointments None recorded. Lab culture, urine 2024 025 [place] [facility] (Centralized Electronic Ordering - All Locations), Patient Can Go To The Location Of Their Choice, [id number] 5 12:05:33 urinalysi s, dipstick 2024 025 [facility], [address] [place] [address], [id number] 5 11:53:31 BMP, serum or plasma 2024 025 [facility], [address] [place] [address], [id number] 5 13:09:55 BMP, serum or plasma 2022 023 [email or web address] [facility], [address] [place] [address], [id number] 3 14:14:33 rapid SARS CoV 2 Ag, QL IA, respirato ry specimen 2022 023 [email or web address] [facility], [address] [place] [address], [id number] 3 14:14:35 Referral None recorded. Procedures None recorded. Surgeries None recorded. Imaging None recorded. Medication Orders cefpodoxi me 100 mg tablet 2024 025 [facility]999, [address], [place], [id number], 5 05:01:25 ondansetr on HCl (PF) 4 mg/2 mL injection solution 2024 025 [facility] #60512, [address] [place] [address], [id number], 5 15:18:50 sodium chloride 0.9 % intraveno us solution 2024 025 [facility] #29408, [address] [place] [address], [id number], 5 15:18:50 lactated Ringers intraveno us solution [address] [facility]72755, [address], [place], [id number], 5 11:09:55 ondansetr on HCl (PF) 4 mg/2 mL injection solution [address] [facility]14412, [address], [place], [id number], 5 11:09:55 loperamid e 2 mg tablet [address] [facility]90716, [address], [place], [id number], 5 12:16:15 loperamid e 2 mg capsule 2024 025 [facility] #59788, [address], [place], [id number], 5 12:16:34 ondansetr on 4 mg disintegr ating tablet 2024 025 [facility] #36877, [address], [place], [id number], 5 12:16:36 ondansetr on 4 mg disintegr ating tablet 2022 023 [email or web address] Not available 3 14:13:10 ondansetr on HCl (PF) 4 mg/2 mL injection solution 2022 023 [email or web address] Not available 3 15:33:36 sodium chloride 0.9 % intraveno us solution 2022 023 [email or web address] Not available 3 15:33:36 Patient TargetsNo targets recorded. Patient InstructionsNo instructions recorded. Reason for Referral None Reported. Results Created Date Observation Date Name Description Value Unit Range Abnormal Flag Note LastModifiedBy Organization Detail LastModifiedTime 06/20/20 23 06/20/2023 BMP, serum or plasm a BUN 15 Not Available [facility] [address], [address] [place] [address] 06/20/2023 14:13:51 06/20/20 23 06/20/2023 BMP, serum or plasm a CI- 104 Not Available [facility] [address], [address] [place] [address] 06/20/2023 14:13:51 06/20/20 23 06/20/2023 BMP, serum or plasm a CRE 0.9 Not Available [facility] [address], [address] [place] [address] 06/20/2023 14:13:51 06/20/20 23 06/20/2023 BMP, serum or plasm a GLU 132 Not Available [facility] [address], [address] [place] [address] 06/20/2023 14:13:51 06/20/20 23 06/20/2023 BMP, serum or plasm a K+ 4.3 Not Available [facility] [address], [address] [place] [address] 06/20/2023 14:13:51 06/20/20 23 06/20/2023 BMP, serum or plasm a Na+ 136 Not Available [facility] [address], [address] [place] [address] 06/20/2023 14:13:51 06/20/20 23 06/20/2023 rapid SARS CoV 2 Ag, QL IA, respi rator y speci men rapid SARS CoV 2 Ag, QL IA, respiratory specimen negati ve Not Available [facility] - [facility] ed [address] [place] [address], [phone] 06/20/2023 14:13:54 02/27/2003/02/2025 URINE CULTU RE, ROUTI NE urine culture, routine Final report abnormal Not Available [facility] ([facility]) [address], [place], [address], 03/02/2025 16:06:42 02/27/20 25 03/02/2025 URINE CULTU RE, ROUTI NE result 1 Klebsi germaine pneumo niae abnormal Susce ptibi lity profi le is consi stent with a proba ble ESBL. Multi -Drug Resis tant Organ ism Great er than 100,0 00 colon y formi ng units per mL Not Available [facility] ([facility]) [address] [place], [address], 03/02/2025 16:06:42 02/27/20 25 03/02/2025 URINE CULTU RE, ROUTI NE antimicrobia l susceptibili ty Commen t S = Susce ptibl e; I = Inter media te; R = Resis tant P = Posit kimmy; N = Negat kimmy MICS are expre ssed in micro grams per mL Antib iotic RSLT# 1 RSLT# 2 RSLT# 3 RSLT# 4 Amoxi cilli n/Cla vulan ic Acid S Ampic illin R Cefaz cl R Cefep ashley S Cefox itin S Cefpo doxim e R Ceftr iaxon e R Cipro floxa kathleen R Ertap enem S Genta micin R Levof loxac in I Merop enem S Nitro furan toin R Piper acill in/Ta zobac snowden S Tetra cycli ne R Tobra mycin S Trime thopr im/Gill lfa R Not Available [facility] ([facility]) [address] [place], [address], 03/02/2025 16:06:42 02/27/20 25 02/28/[address] PROBL EM request problem TNP Test not perfo rmed. No urine speci men was recei sandra for cultu re. TEST: [id number] 7 Urine Cultu re, Routi ne Not Available [facility] ([facility]) [address] [place], [address], 02/28/2025 12:05:33 Result Notes None recorded. Medical Equipment None Reported. Allergies Allergen ID Allergen Name Allergen Category Reaction Reaction Severity Criticality Documentation Date Start Date Code Code System Note Provider Name and Address Organization Details Recorded Time 77879 fish oils food,medi cation anaphylax is Not available high 02/16/20252018 4419 RxNorm Margarita Galeas MD [address] [facility],[address], [place], [address], [employer] 19:38:53 76911 Shellfish (substanc e) food,medi cation anaphylax is Not available [facility] 02/16/20252018 59528 9006 RASTA Galeas MD [address] [facility],[address], [place], [address], [employer] 19:38:56 56290 shellfish derived food,medi cation Not available Not available Not available 02/18/2025 Not Available [facility] - production 11:24:40 02381 Amoxil medicatio n Not available Not available Not available 02/25/202511208 9 RxNorm Not Available [facility] 14:44:47 9169 latex environme nt,medica tion Not available Not available Not available 04/21/2024 51209 91 RxNorm Not Available [facility] 4 03:49:35 Medications Name Sig Start Date Stop Date Status Note LastModified by Organization Details LastModified Time prednisone 10 mg tablet TAKE 4 TABLETS BY MOUTH DAILY FOR 3 DAYS THEN 3 TABLETS DAILY FOR 3 DAYS THEN 2 TABLETS DAILY FOR 3 DAYS THEN 1 TABLET DAILY FOR 3 DAYS active Not Available Not Available No t Available doxycycline hyclate 100 mg capsule active Not Available Not Available N ot Available atorvastati n 20 mg tablet TAKE 1 TABLET BY MOUTH DAILY active Not Available Not Available No t Available clindamycin HCl 300 mg capsule TAKE 1 CAPSULE BY MOUTH EVERY 6 HOURS active Not Available Not Available No t Available albuterol sulfate 2.5 mg/3 mL (0.083 %) solution for nebulizatio n INHALE 3 ML BY NEBULIZAT ION EVERY 4 HOURS NEEDED FOR SHORTNESS OF BREATH OR WHEEZING active Not Available Not Available No t Available loperamide 2 mg capsule TAKE 1 CAPSULE BY MOUTH FOUR TIMES DAILY NEEDED FOR DIARRHEA active Not Available Not Available No t Available cetirizine 10 mg tablet TAKE 1 TABLET BY MOUTH EVERY DAY active Not Available Not Available No t Available cefpodoxime 200 mg tablet TAKE 1 TABLET BY MOUTH TWICE DAILY. START 11/28/22 MORNING active Not Available Not Available No t Available azithromyci n 250 mg tablet TAKE 2 TABLETS (500 MG) BY ORAL ROUTE ONCE DAILY FOR 1 DAY THEN 1 TABLET (250 MG) BY ORAL ROUTE ONCE DAILY FOR 4 DAYS active Not Available Not Available No t Available cefpodoxime 100 mg tablet Take 1 tablet every 12 hours by oral route for 5 days. 03/10 completed Not Available Not Available Not Available fluconazole 150 mg tablet TAKE 1 TABLET BY MOUTH ONCE active Not Available Not Available No t Available senna 8.6 mg tablet TAKE 1 TABLET BY MOUTH EVERY DAY NEEDED FOR CONSTIPAT ION active Not Available Not Available No t Available FreeStyle Lancets 28 gauge TEST BLOOD GLUCOSE DAILY active Not Available Not Available No t Available lisinopril 20 mg tablet active Not Available Not Available Not Available glipizide ER 5 mg tablet, extended release 24 hr TAKE 1 TABLET BY MOUTH DAILY active Not Available Not Available No t Available amlodipine 5 mg tablet TAKE 1 TABLET BY MOUTH DAILY active Not Available Not Available No t Available morphine ER 30 mg tablet,exte nded release active Not Available Not Available Not Available omeprazole 40 mg capsule,del ayed release TAKE 1 CAPSULE BY MOUTH DAILY active Not Available Not Available No t Available tramadol 50 mg tablet TAKE 1 TABLET BY MOUTH EVERY 6 HOURS NEEDED FOR WOUND PAIN. active Not Available Not Available No t Available acetaminoph en 500 mg tablet TAKE 2 TABLETS BY MOUTH THREE TIMES DAILY FOR 5 DAYS active Not Available Not Available No t Available ketorolac 30 mg/mL (1 mL) injection solution Inject 30 mg by intramusc ular route. 2022 active Not Available Not Available Not Avai lable carbamazepi ne 200 mg tablet TAKE 1 TABLET BY MOUTH EVERY DAY active Not Available Not Available No t Available ofloxacin 0.3 % ear drops INSTILL 4 DROPS TO AFFECTED EAR TWICE DAILY FOR 7 DAYS active Not Available Not Available No t Available famotidine 20 mg tablet TAKE 1 TABLET BY MOUTH TWICE DAILY active Not Available Not Available No t Available lorazepam 0.5 mg tablet TAKE 1 TO 2 TABLETS BY MOUTH 1 HOUR BEFORE MRI active Not Available Not Available No t Available exemestane 25 mg tablet active Not Available Not Available Not Available ciprofloxac in 0.3 % eye drops active Not Available Not Available No t Available [employer]To[employer] Fiber Ultra Test strips USE DIRECTED TO CHECK BLOOD SUGARS 1 - 2 TIMES DAILY active Not Available Not Available No t Available cephalexin 500 mg capsule TAKE 1 CAPSULE BY MOUTH TWICE DAILY FOR 7 DAYS active Not Available Not Available No t Available simvastatin 20 mg tablet TAKE 1 TABLET BY MOUTH DAILY AT BEDTIME active Not Available Not Available No t Available erythromyci n 5 mg/gram (0.5 %) eye ointment active Not Available Not Available Not Available lisinopril 10 mg tablet TAKE 1 TABLET BY MOUTH DAILY active Not Available Not Available No t Available metoprolol tartrate 50 mg tablet TAKE 1 TABLET BY MOUTH TWICE DAILY active Not Available Not Available No t Available docusate sodium 100 mg capsule TAKE 1 CAPSULE BY MOUTH TWICE DAILY active Not Available Not Available No t Available sertraline 25 mg tablet TAKE 1 TABLET BY MOUTH DAILY active Not Available Not Available No t Available mupirocin 2 % topical ointment APPLY TOPICALLY TO THE AFFECTED AREA THREE TIMES DAILY FOR 7 DAYS active Not Available Not Available No t Available sodium chloride 0.9 % intravenous solution Inject 1000 mL by intraveno us route. 2022 active Not Available Not Available Not Avai lable ergocalcife rol (vitamin D2) 1,250 mcg (50,000 unit) capsule TAKE 1 CAPSULE BY MOUTH 1 TIME A WEEK active Not Available Not Available No t Available albuterol sulfate HFA 90 mcg/actuati on aerosol inhaler INHALE 2 PUFFS INTO THE LUNGS EVERY 6 HOURS NEEDED FOR COUGH OR WHEEZING active Not Available Not Available No t Available hydromorpho ne 4 mg tablet active Not Available Not Available Not Available ondansetron 4 mg disintegrat ing tablet DISSOLVE 1 TABLET UNDER THE TONGUE THREE TIMES DAILY NEEDED FOR NAUSEA OR VOMITING active Not Available Not Available No t Available cefdinir 300 mg capsule TAKE 1 CAPSULE BY MOUTH TWICE DAILY active Not Available Not Available No t Available fluticasone propionate 50 mcg/actuati on nasal spray,suspe nsion SHAKE LIQUID AND USE 2 SPRAYS IN EACH NOSTRIL EVERY DAY active Not Available Not Available No t Available metformin ER 500 mg tablet,exte nded release 24 hr TAKE 1 TABLET BY MOUTH DAILY WITH BREAKFAST active Not Available Not Available No t Available sertraline 50 mg tablet TAKE 1 TABLET BY MOUTH DAILY active Not Available Not Available No t Available oxycodone 5 mg tablet TAKE 1 TABLET BY MOUTH EVERY 6 HOURS NEEDED FOR PAIN active Not Available Not Available No t Available cyclobenzap rine 5 mg tablet TAKE 1 TABLET BY MOUTH TWICE DAILY NEEDED FOR MUSCLE SPASMS active Not Available Not Available No t Available duloxetine 60 mg capsule,del ayed release TAKE 1 CAPSULE BY MOUTH DAILY active Not Available Not Available No t Available pregabalin 150 mg capsule TAKE 1 CAPSULE BY MOUTH THREE TIMES DAILY active Not Available Not Available No t Available ondansetron HCl (PF) 4 mg/2 mL injection solution 8 mg IV x1 now 2022 active Not Available Not Available Not Avai lable oxycodone 10 mg tablet active Not Available Not Available Not Available fenofibrate 54 mg tablet TAKE 1 TABLET BY MOUTH DAILY active Not Available Not Available No t Available melatonin 5 mg capsule TAKE 1-2 CAPSULE BY MOUTH AT BEDTIME active Not Available Not Available No t Available guaifenesin ER 600 mg tablet, extended release 12 hr TAKE 1 TABLET BY MOUTH TWICE DAILY active Not Available Not Available No t Available fluticasone 232 mcg-salmete rol 14 mcg/actuati on breath activated powdr INHALE 1 PUFF INTO THE LUNGS TWICE DAILY active Not Available Not Available No t Available OneTouch Ultra2 Meter USE DIRECTED TO TEST BLOOD GLUCOSE active Not Available Not Available No t Available OneTouch Delica Plus Lancet 33 gauge USE TO TEST BLOOD GLUCOSE EVERY DAY active Not Available Not Available No t Available Chest Congestion Relief DM 10 mg-100 mg/5 mL oral syrup TAKE 10 ML BY MOUTH EVERY 4 HOURS NEEDED FOR COUGH active Not Available Not Available No t Available QuickVue At-Home COVID-19 Test kit TEST DIRECTED TODAY active Not Available Not Available No t Available OneTouch UltraSoft 2 Lancet 30 gauge TEST BLOOD GLUCOSE EVERY DAY active Not Available Not Available No t Available Vitals Date Recorded Body weight Body mass index (BMI) Provider Name and Address Organization Details Last Updated DateTime 02/16/2025 092813.63 g 53.2 kg/m2 Margarita Galeas MD [address] [facility],[address], [place], [address], [place] - [facility] 02/16/2025 20:09:00 Date Recorded Oxygen saturation Oxygen saturation in Arterial blood by Pulse oximetry Respiratory rate Heart rate Body height Body temperature Oxygen saturation Oxygen saturation in Arterial blood by Pulse oximetry Respiratory rate Heart rate Systolic And Diastolic Systolic And Diastolic Systolic And Diastolic Provider Name and Address Organization Details Last Updated DateTime 77 % 77 % 20 /min 77 /min 162.56 cm 98 [degF] 97 % 97 % 16 /min 80 /min 121/69 mm[Hg] 129/75 mm[Hg] 145/85 mm[Hg] Not Available [facility] 5 12:22:03 Date Recorded Respiratory rate Body temperature Heart rate Oxygen saturation Oxygen saturation in Arterial blood by Pulse oximetry Systolic And Diastolic Provider Name and Address Organization Details Last Updated DateTime 5 14 /min 98 [degF] 79 /min 97 % 97 % 135/68 mm[Hg] Not Available [facility] 5 15:17:16 Date Recorded Oxygen saturation Oxygen saturation in Arterial blood by Pulse oximetry Body height Respiratory rate Heart rate Body weight Body temperature Systolic And Diastolic Provider Name and Address Organization Details Last Updated DateTime 5 97 % 97 % 170.18 cm 16 /min 63 /min 150232. 6 g 97 [degF] 131/76 mm[Hg] Not Available [facility] 5 10:37:06 Date Recorded Body height Oxygen saturation Oxygen saturation in Arterial blood by Pulse oximetry Heart rate Respiratory rate Body temperature Body weight Systolic And Diastolic Provider Name and Address Organization Details Last Updated DateTime 3 152.4 cm 95 % 95 % 80 /min 18 /min 98.1 [degF] 952879. 8 g 138/82 mm[Hg] Not Available [facility] 3 18:05:53 Date Recorded Body temperature Respiratory rate Oxygen saturation Oxygen saturation in Arterial blood by Pulse oximetry Heart rate Body weight Systolic And Diastolic Provider Name and Address Organization Details Last Updated DateTime 3 98.2 [degF] 16 /min 96 % 96 % 93 /min 952755. 6 g 138/68 mm[Hg] Not Available [facility] 3 13:30:40 Social History None recorded. Functional Status None recorded. Mental Status None recorded. Family History Nothing Reported. Medical History No medical history recorded. Gynecological HistoryNo gynecological history recorded. Obstetrics History GPAL:G 0 P 0 0 0 0 Past Encounters Encounter ID Performer Location Encounter Start Date Encounter Closed Date Diagnosis/Indication Diagnosis SNOMED-CT Code Diagnosis ICD10 Code Diagnosis IMO Codes Diagnosis Note [id number] Debora Dang MD [facility] [address] [place] [phone] 09/19/2022 20:08:14 09/24/2022 09:37:13 Low back pain 780089540 M54.50 chronic low back pain, unable to fill opiates until tomorrow. no focal neuro sx, no saddle anesthesia or incontinen ce. will give 30mg toradol x1 [id number] Lj Mak MD [facility] - [facility] [address] [place], [place] [phone] 11/23/2022 12:14:59 11/27/2022 13:14:06 Upper respiratory infection 76608352 J06.9 57yo woman presents with cough, low grade fever (Tmax 100.4), and diaphoresi s. On exam there are rales/rhon chi which are symmetrica l. Rapid covid flu strep negative. Differenti al includes either viral or bacterial bronchitis / pneumonia. Given this, I felt reasonable to treat with a Z-Pack in order to prevent ED visit or hospitaliz ation. She will call back if she is feeling worse. [id number] Kvng Fitch MD [facility] [address] [place] [phone] 03/01/2023 15:44:44 03/02/2023 15:58:20 Chronic low back pain 346056117 M54.50 [id number] Josemanuel Yu MD [facility] - [facility] [address] [place] [phone] 03/21/2023 18:05:50 03/21/2023 23:24:26 Viral upper respiratory tract infection 743015412 J06.9 [id number] Laurence Grossman MD [facility] [address] [place] [phone] 06/20/2023 13:30:38 06/21/2023 13:12:31 Nausea and vomiting 20908823 R11.2 Evaluation in the field was performed by my government affairs researcher colleague, as noted above, I provided real-time direction and supervisio n for this visit. 58yo F with PMHx breast CA s/p resection and chemo 2019 who is p/w 2 days of nausea, vomiting, and chills. No focal abd pain, melena, BRBPR, hematemesi s. Denies hx pancreatit is or cholecysti tis. on government affairs researcher eval VS all wnl, abd exam without focal TTP, and POC labs without electrolyt e derangemen ts or FIDEL. Discussed most likely etiology is viral gastroente ritis and currently no red flag sx to warrant emergent imaging. Recommend symptomati c mgmt and seeking ED care if develops abd pain, inability to tolerate PO, fevers, or other new symptoms. Given IV zofran and IVF bolus by government affairs researcher and rx for zofran SL tablets sent to pharmacy. We discussed the diagnostic uncertaint y of home visits and the risk associated with this. In this case, the patient and I felt this to be an acceptable and reasonable amount of risk given the benefit of avoiding an ED visit. We discussed the need to seek care urgently/e mergently in the setting of any new or worsening serious symptoms, shortness of breath, cough, chest pain, fever. [id number] Margarita Galeas MD [address] [phone] 02/16/2025 10:59:50 02/16/2025 21:21:47 Nausea, vomiting and diarrhea 0385340 R11.2 R19.7 [id number] Labs not concerning , except for slightly elevated lactate/la bs do not indicate anemia or dehydratio n. Patient feels better after IV fluids and medication -BP standing is 145/85 with pulse of 80/doubt C. difficile as not febrile, abdominal exam is benign and she has not had any recent antibiotic s. Concern for some opiate withdrawal -advised we cannot administer nor prescribe morphine. Advised the patient to call her PCP during the visit regarding a refill, which she did. Medic does not have any IV famotidine advised patient to take omeprazole 40 twice a day for 3 days. Rx sent in for loperamide and Zofran/adv ised bland, brat diet with clear liquids to stay hydrated and settle GI distress-p atient has Tylenol at home -500 mg advised may take maximally 1 g 4 times a day every 6 hours. She verified understand ing and agreed with the plan. Advised patient she may call us if she feels she needs another visit [id number] Duran Moore MD [address] [address] 02/18/2025 15:17:10 02/19/2025 12:05:10 Nausea, vomiting and diarrhea [id number] R11.2 R19.7 [id number] Alex Dunn MD [facility] ED Medical [facility] [address] [place] [address] 02/26/2025 10:36:56 02/26/2025 15:54:56 Acute urinary tract infection [id number] N39.0 [id number] Health Concerns Section Related Observation LastModified by Organization Detai ls LastModified Time None Recorded Concern Status LastModified by Organization Details LastModified Time None Recorded Advance Directives Directive None Recorded Payers Insurance Date Sequence Insurance Name Policy Number Policy Layton Covered Member ID Layton Member ID Guarantor Name 11/23/2022 1 [facility] - DOS PRIOR TO 2022 - DUAL ELIGIBLE (MEDICARE REPLACEMENT/ADV ANTAGE - HMO) Asia LukeJhon [id number] Asiaher Carlson 02/26/2025 1 [facility] - DOS ON OR AFTER 2022 - DUAL ELIGIBLE - CUSTODIAL OPTIONS AND ONE CARE (MEDICARE REPLACEMENT/ADV ANTAGE - HMO) [facility] [id number] Robyn Notes Date Note Type Note Provider Name and Address Organization Details Recorded Time 03/21/2023 text/html CRC Nursing Assessment: Reason For Request: [employer] reporting general malaise, not feeling well, specific symptoms not reported. Chief Complaints: Shortness of Breath/Dyspnea, Weakness/Lethargy PMH: Diabetes, Cancer Allergies: Latex Comments: Verified identity/address. Fever x2 days. Tmax of 100.9 this morning. + body aches, fatigue, cough, sore throat. Reports dyspnea. 02 sat 95% RA at this time. Speaking full sentences. Took Tylenol arthritis with some relief. No known sick contacts. ...................... ...................... ...................... ...................... ...................... ...................... ......... Billiard Par[employer] Manager Note From Juve Juan Manuel: PT caox3 answers door with steady gait. Pt complains of cough and tiredness x 3 days. Pt complains of nasal congestion and frequent productive cough with white sputum. Pt states she has been sleeping a lot more than normal. PT denies chest pain, nausea, vomiting or diarrhea, difficulty breathing, dizziness or any other. Pt reports her appetite has been low but her liquid intake is up. Normal elimination. Negative for covid and flu via rapid POC. Pt pink warm and dry, secondary exam unremarkable. Lung sounds clear, negative increased work of breathing. [facility] advises supportive care including rest and fluids. Red flags and pt education discussed. ...................... ...................... ...................... ...................... ...................... ...................... ......... Disposition: Fulfilled Josemanuel Yu MD [address] [place] [address],[address], [place], [address], [employer] 03/21/2023 18:53:48 06/20/2023 text/html CRC Nurse Triage Notes (Manjinder Pitt): Chief Complaints: Nausea/Vomiting PMH: Diabetes, Cancer Allergies: Latex Comments: Member reports N/V/D x2 days - Chills -Decreased PO intake - Denies Cough/Cold/Congestion - Prem JORGE ...................... ...................... ...................... ...................... ...................... ...................... ......... Billiard Par[employer] Manager Note From Johnathan Hou: Encountered patient supine, alert, oriented. Patient states she is a cancer patient still undergoing treatment but does not actively undergo chemo or radiation therapies. Patient states the last meal she was able to consume without vomiting was on 06/17. Patient states she ate the same food as everybody else in her house and is the only one to have symptoms at this time. Patient denies any chest pain, shortness of breath or changes in vision. Patient states that she has been excessively nauseous and has not been able to eat or drink since 06/18, expresses having t his awful taste in my mouth I can t get rid of. Patient expresses feeling intermittent chills, but denies experiencing any fever since onset of symptoms. [facility] Contacted: ORDERS FOR VASCULAR ACCESS, POC, BLOODWORK, 8 MG OF IV ZOFRAN PERFORMED. Post POC bloodwork, 1 L of normal saline administered to which patient expresses minor improvement in symptoms. [facility] to fill prescription at patients pharmacy of choice. Red flags discussed with patient and family, both parties encouraged to seek further medical attention should patient develop further symptoms or not begin to feel better within 5 days. Patient and family both verbalized being comfortable with plan to remain at home. Skin warm, dry and of appropriate color for ethnicity. Head and neck free of trauma and edema. JVD not assessed. Breath sounds present, clear and equal bilaterally. Abdomen is soft non-tender, and non-distended. Extremities free of trauma and edema. B[employer] Par[employer] Manager Allergies: Latex ...................... ...................... ...................... ...................... ...................... ...................... ......... Disposition: Esvin Laurence Grossman MD [address] [facility],[address], [place], [address], [employer] 06/20/2023 15:35:13 02/16/2025 text/html ROS as noted in the HPI CRC Nurse Triage Notes (Yolis Bowser): Reason For Request: nausea/diarrhea /vomiting/dizzy Patient Reports: Diarrhea no blood in stool; Nausea with or without vomiting; Inability to tolerate foods, fluids or daily medicationsDenies: Sharp focal or diffuse abdominal pain Vomiting blood/coffee ground material Bloating, jaundice new onset with pain Nausea and vomiting greater than 2 hours with abdominal pain Tearing pain that radiates to back Food Impaction Vague abdominal pain greater than 24 hours Constipation Chief Complaints: Abdominal PainPMH: Cancer, Gastroesophageal Reflux Disease (GERD), OtherPMH Reviewed at 02/16/2025:30Allergies Reviewed at 02/16/2025Comments: 59 y.o female complains of Abdominal Pain Patient reports nausea and vomiting, one episode, but 48 hours of loose stool.Patient denies any abd pain.She reports having muscle cramps in her legs. She had one episode of throwing up bile , no blood.She denies any blood in her stool, which is normal in color. She does take oxy so she often has hard stools, last normal BM was 3 days ago, then the loose stool started.She does have a hiatal hernia and acid reflex. and takes Omeprazole.PMH > taking estrogen blockers >breast cancer.Pt will put dog awayI provided information on the mobile health provider response time and advised the patient and/or caregiver to monitor reported signs and symptoms. I discussed the warning signs of when to seek emergency care. SEGMD: Patient denies fever. She started with nausea 3 days ago but ate a full meal Saturday night with a ham, steak and potatoes/no known ill contacts, has not left the house, has not eaten any suspicious foods. She denies taking any antibiotics within the past month. She complains of lower abdominal pain as well as epigastric and upper abdominal pain. Vomited once yesterday(bile-no hematemesis) and has had diarrhea for 2 days, no melena or hematochezia. She denies chest pain or shortness of breath. Reports 20 stools in the past 24 hours. Feels dizzy when she gets up to go to the bathroom. Did take her omeprazole 40 mg today. Complains of heartburn burning upper abdominal pain. No chest pain. She does have a history of GERD and hiatal hernia. She is status post bilateral mastectomy in 2019. Patient and her mother reports she has not had any morphine ER 30 mg(Rx for chronic pain) for 3 days, stating she ran out due to a medication mix-up Billiard Par[employer] Manager Organization Information for Juan Manuel An Legal Name: [facility] Address: [address] [place] [address], J[place] Ulrich [address], Final Installer Inspector: Brooks Barrera MD CLIA No.: [id number] [employer] Manager POC Test Results from Juan Manuel An [facility] (11:32:28) pH: 7.562pH unitspCO2: 27.2olQzcR5: 59.5mmHgNa: 136mmol/LK: 4.3mmol/LiCa: 1.12mmol/LCl: 103mmol/LTCO2: 23.1mEq/LHct: 43%Hb: 14g/dLGlu: 150mg/dLLac: 2.96mmol/LCr: 0.90mg/dLBUN: 18mg/dLAmmol/LHCO3: 24.6mmol/L ...................... ...................... ...................... ...................... ...................... ...................... ......... [employer] Par[employer] Manager Note From Juan Manuel An: Patient alert and oriented, complains of upper [...] after medication and fluid administration. Patient reports she s in contact with PCP s office to refill opiate prescription. Patient reports satisfaction with visit. Red flags patient education discussed. [facility] Lab Orders: BMP, serum or plasma: Performed [facility] Medication Orders: lactated Ringers intravenous solution: Performed ondansetron HCl (PF) 4 mg/2 mL injection solution: Performed loperamide 2 mg tablet: Performed ...................... ...................... ...................... ...................... ...................... ...................... ......... [facility] Consulted: Margarita Galeas ...................... ...................... ...................... ...................... ...................... ...................... ......... Disposition: Esvin Margarita Galeas MD [address] [facility],[address], [place], [address], [employer] 02/16/2025 20:17:11 02/18/2025 text/html CRC Nurse Triage Notes (Yolis Bowser): Reason For Request: Pt's mother reporting on a recent [facility] visit this past SATURDAY; pt is still vomiting and going on day 4 of no food- Patient Reports: Vague abdominal pain greater than 24 hours; Diarrhea no blood in stool; Nausea with or without vomiting; Inability to tolerate foods, fluids or daily medications Denies: Sharp focal or diffuse abdominal pain Vomiting blood/coffee ground material Bloating, jaundice new onset with pain Nausea and vomiting greater than 2 hours with abdominal pain Tearing pain that radiates to back Food Impaction Constipation Chief Complaints: Nausea / Vomiting PMH: Cancer, Gastroesophageal Reflux Disease (GERD) PMH Reviewed at 02/18/2025 Allergies Reviewed at 02/18/2025 Comments: 59 y.o female complains of Nausea / Vomiting Mother calling for Patient was seen on Saturday and was given fluids and medication. She got up yesterday and ate 2 pieces of bread. She woke up this am and threw up bile. She did have one episode of loose stool yesterday but none today. She denies any dizziness or confusion. She does have increased weakness and fatigue. She has not called her PCP , but is recommended to call. She did say she has mild abdominal pain. She has been taking the zofran and has only been helping slightly . She does have a h/o cancer , remission I provided information on the mobile health provider response time and advised the patient and/or caregiver to monitor reported signs and symptoms. I discussed the warning signs of when to seek emergency care. ...................... ...................... ...................... ...................... ...................... ...................... ......... [employer] Par[employer] Manager Note From Juan Manuel An: Patient alert and oriented laying on the left side in bed. Patient reports nausea vomiting times 12 hours. Patient reports unable to eat times four days. Patient complains of upper epigastric and lower diffuse abdominal pain. Patient reports pain has been steady for 5 to 6 days. Patient denies any other pain or complaints. Patient denies black or bloody vomit or stool. Patient pink warm dry secondary exam on remarkable lung sounds clear negative increased work of breathing positive sentences abdomen soft, nontender extremities unremarkable no edema noted. Medication s administered as ordered without complication using five rights Patient advised to go to ED for imaging. Patient refuses, states she s uncomfortable at the hospital. Patient with family. Patient reports she l l go to hospital if needed. ...................... ...................... ...................... ...................... ...................... ...................... ......... [facility] Consulted: Duran Moore ...................... ...................... ...................... ...................... ...................... ...................... ......... Disposition: Fulfilled Duran Moore MD [address] [facility],[address], [place], [address], [employer] 02/19/2025 08:43:46 02/26/2025 text/html ROS as noted in the HPI HPI: PMH - HTN, GERD, Obesity, MDD, DM, hx breast cancer, Asthma, DISH, Diaghphragmatic hernia without obstruction, Incontinence.Member inpatient at [facility] 02/18-02/19/25 for Sepsis, cystitis and abdominal pain. She was treated with IV antibiotics and discharged without oral treatment. She reports feeling better overall but notes her urine is beginning to appear cloudy and would like it rechecked. She requests visit 02/26/25. ...................... ...................... ...................... ...................... ...................... ...................... ......... CRC Nurse Triage Notes (Kelli Zabala): Chief Complaints: Urinary Symptoms PMH: Cancer, Gastroesophageal Reflux Disease (GERD), Hypertension, Obesity, Depression, Diabetes Mellitus Type 2, Asthma PMH Reviewed at 02/25/2025:44 Allergies Reviewed at 02/25/2025 - 14:44 Comments: HPI reviewed Billi[employer] Parlor Manager Organization Information for Abraham Diaz Business Legal Name: [facility] Address: [address] [place] [id number], Final Installer Inspector: Brooks DELCIDIA No.: [id number] [employer] Manager POC Test Results from Abraham Diaz Urine Dipstick (10:22:06) Urine leukocytes: -CARL Urine nitrites: -NIT Urine urobilinogen: -URO Urine protein: -PRO Urine pH: 5.0pH Urine blood: -BLO Urine specific gravity: 1.015SG Urine ketones: -KET Urine bilirubin: -ROBER Urine glucose: -GLU ...................... ...................... ...................... ...................... ...................... ...................... ......... Billiard Par[employer] Manager Note From Abraham Diaz: InstED visit for a female patient with concern for UTI. Patient was admitted to the hospital approximately one week ago for G.I. symptoms accompanying what she believed was a urinary tract infection. Patient treated with IV antibiotics and discharged home. No oral antibiotics prescribed. Patient feels as if condition never fully improved now noting cloudy foul smelling urine and urine retention. Patient presents appearing well. Vital signs taken is listed. No fever noted on exam. Patient was able to provide urine specimen with dipstick analysis unremarkable for UTI and culture specimen obtained. Consulted with [facility] Dr. Dunn advised starting patient on oral antibiotics pending results of urine culture. Patient encouraged to monitor symptoms and follow up with PCP and may request reevaluation. Urine specimen brought to [facility] for analysis. Patient education provided. [facility] Lab Orders: culture, urine: Performed urinalysis, dipstick: Performed ...................... ...................... ...................... ...................... ...................... ...................... ......... [facility] Consulted: Alex Dunn ...................... ...................... ...................... ...................... ...................... ...................... ......... Disposition: Fulfilled Alex Dunn MD [address] [place] [address],[address], [place], [address], [facility] [employer] [facility] 02/26/2025 15:42:54 OBGyn Episode No OBEpisode recorded.
--- OUTSIDE RECORDS SUMMARY | 2025-05-05 17:04 | XMS_ITS | Encounter Summary ---
Author Organization [facility] Address [address] [place] [address] Phone Care Team Providers Care Wreath Machine Tender Name Role Phone Edis Jorgensen MD Primary Care Provider [phone] Encounter Details Date Type Department Care Team (Late st Contact Info) Description 02/14/2023 Documentation Only [facility] [address] [place] [address] Edis Jorgensen MD [address] [place] [address] Social History Tobacco Use Types Packs/Day Years [...] Visit [facility] [address] [address] Praveen Sam MD [address] [place] [address] [place] [address] documented as of this encounter Visit Diagnoses Not on filedocumented in this encounter Care Teams Wreath Machine Tender Relationship Specialty Start Date End Date Edis Jorgensen MD [address] [place] [phone] PCP - [facility] 02/05/23 documented as of this encounter
--- OUTSIDE RECORDS SUMMARY | 2025-05-05 17:04 | XMS_ITS | Patient Health Record ---
Author Organization [facility] Address [address] [place] [address] Care Team Providers Care Watershed Program Manager Name Role Phone Caio Hernandez Unavailable [phone] Reason For Referral No Information Plan Of Treatment No Information
== END 2025-05-05 14:03 | disposition home or self-care (01) ==
LOC: HO.HSM 13:51
PROVIDERS: PCP Internal Medicine; Referring Provider Internal Medicine; Visit Provider Psychiatry & Neurology Neurology
DX: G62.9 Polyneuropathy, unspecified (principal); M79.2 Neuralgia and neuritis, unspecified
CPT/HCPCS: 99213

== ENCOUNTER → 2025-05-05 13:50 | Outpatient (BNVA) | payer OTHER, SELFPAY | PROVIDERS: PCP Internal Medicine; Referring Provider Internal Medicine; Visit Provider Psychiatry & Neurology Neurology | DX: M79.2 Neuralgia and neuritis, unspecified (principal) | CPT/HCPCS: 99212 ==